=== PATIENT | male | born 1935 | race Hispanic/Latino ===

== ENCOUNTER 2017-12-11 20:00 | Inpatient (IN) | payer MEDICARE, BC ==
[~2017-12-11] VITALS: Ht 188 cm; Wt 87.1 kg
[2017-12-11] MEDS ORDERED: AMIODARONE HCL200 MG PO (20:19)
[2017-12-11] MEDS ORDERED: ASPIR 8181 MG (20:19)
[2017-12-11] MEDS ORDERED: SIMVASTATIN40 MG PO (20:20)
[2017-12-11] MEDS ORDERED: ARICEPT5 MG PO (20:20)
[2017-12-11] MEDS ORDERED: SODIUM CHLORIDE 0.9% 1000ML 1,000 ML IV STA (20:36)
[2017-12-11] MEDS ORDERED: ACETAMINOPHEN 1000 MG/100 ML IV STA (20:53)
[2017-12-11 20:59] LABS: BASOPHILS % 0.2 % (0.0-1.0); EOSINOPHILS % 0.2 % (0.0-6.0); HEMATOCRIT 37.9 % (38.2-49.6); HEMOGLOBIN 12.6 g/dL (14.0-18.0); LYMPHOCYTES # (AUTO) 0.5 (1.0-3.2); LYMPHOCYTES % 4.6 % (18.0-39.1); MEAN CORPUSCULAR HEMOGLOBIN 30.9 pg (28-32); MEAN CORPUSCULAR HGB CONC 33.2 g/dL (31-35); MEAN CORPUSCULAR VOLUME 92.9 fL (81-99); MONOCYTES # (AUTO) 0.6 (0.2-0.8); NEUTROPHILS # (AUTO) 10.1 (2.1-6.9); NEUTROPHILS % 89.3 % (38.7-80.0); PLATELET COUNT 178 x10e3/uL (140-360); RED BLOOD COUNT 4.08 x10e6/uL (4.3-5.7); RED CELL DISTRIBUTION WIDTH 13.6 % (11.7-14.4)
[2017-12-11] MEDS ORDERED: VANCOMYCIN 1GM/NS 250 ML 250 ML IV ONE (21:00)
[2017-12-11 21:07] LABS: INR 3.56
[2017-12-11 21:09] LABS: PARTIAL THROMBOPLASTIN TIME 68.8 seconds (23.8-35.5)
[2017-12-11 21:14] LABS: ALANINE AMINOTRANSFERASE 57 IU/L (0-55); ALBUMIN 3.9 g/dL (3.5-5.0); ALBUMIN/GLOBULIN RATIO 1.1 (0.8-2.0); ALKALINE PHOSPHATASE 113 IU/L (40-150); ANION GAP 17.9 mmol/L (8-16); BLOOD UREA NITROGEN 22 mg/dL (7-26); BUN/CREATININE RATIO 20 (6-25); CALCIUM 9.3 mg/dL (8.4-10.2); CARBON DIOXIDE 20 mmol/L (22-29); CHLORIDE 105 mmol/L (98-107); CREATINE KINASE 45 IU/L (30-200); EST GLOMERULAR FILTRATION RATE > 60 ML/MIN (60-); GLUCOSE 200 mg/dL (74-118); MAGNESIUM 1.6 MG/DL (1.3-2.1); POTASSIUM 3.9 mmol/L (3.5-5.1); SODIUM 139 mmol/L (136-145)
[2017-12-11] MEDS: CEFEPIME HCL 2 GM VIAL IV SCH (21:52)
[2017-12-11 22:21] LABS: BAND NEUTROPHILS % (MANUAL) 1 %; LYMPHOCYTES % (MANUAL) 2 % (19-48); MONOCYTES % (MANUAL) 1 % (3.4-9.0); NEUTROPHILS % (MANUAL) 96 % (40-74); PLATELET ESTIMATE ADEQUATE; PLATELET MORPHOLOGY COMMENT NORMAL; RBC MORPHOLOGY COMMENT NORMAL
[2017-12-11 22:32] LABS: CLARITY,URINE CLOUDY (CLEAR); COLOR,URINE YELLOW (YELLOW); LEUKOCYTE ESTERASE ,URINE 2+ (NEGATIVE); NITRITE,URINE POSITIVE (NEGATIVE); PROTEIN,URINE DIPSTICK TRACE (NEGATIVE)
[2017-12-11 22:33] LABS: BILIRUBIN,URINE NEGATIVE (NEGATIVE); KETONES,URINE 1+ (NEGATIVE); URINE UROBILINOGEN 0.2 mg/dL (0.2 - 1)
[2017-12-11] MEDS ORDERED: LEXAPRO10 MG PO (22:52)
[2017-12-11] MEDS ORDERED: WARFARIN SODIUM2 MG PO (22:52)
[2017-12-11] MEDS ORDERED: TRADJENTA5 MG (22:53)
[2017-12-11] MEDS ORDERED: PROPRANOLOL HCL80 MG PO (22:53)
[2017-12-11 22:56] LABS: BACTERIA,URINE MANY /HPF; EPITHELIAL CELLS,URINE FEW /LPF; RBC,URINE 0-5 /HPF (0-5); WBC,URINE (MAN) >50 /HPF (0-5)
[2017-12-11 23:20] LABS: STREPTOCOCCUS GRP A ANTIGEN NEGATIVE (NEGATIVE)
[2017-12-11 23:24] LABS: INFLUENZAE A&B ANTIGEN (RAPID) NEGATIVE (NEGATIVE)
[2017-12-12] VITALS (7 sets, daily range): BP systolic 121–178; BP diastolic 60–85
--- NOTE | 2017-12-12 00:22 | Diagnostic Imaging Report ---
EXAM: CHEST SINGLE (PORTABLE), AP 1 view INDICATION: Fever and weakness COMPARISON: None FINDINGS: LINES/TUBES: None LUNGS: Bilateral perihilar bronchial thickening. PLEURA: No effusions or pneumothorax. HEART AND MEDIASTINUM: Normal size and contour. Median sternotomy wires and valve replacement. BONES AND SOFT TISSUES: No acute findings. IMPRESSION: Bilateral perihilar bronchial thickening. This could be secondary to infection or edema. Signed by: Dr. Liudmila Corona M.D. on 12/12/2017 12:19 AM
--- NOTE | 2017-12-12 00:37 | Diagnostic Imaging Report ---
Exam: Head CT without contrast History: Altered mental status, on Coumadin, Comparison studies: None Technique: Axial images were obtained from the skull base to the vertex. Coronal and sagittal images reconstructed from the axial data. Dose modulation, iterative reconstruction, and/or weight based adjustment of the mA/kV was utilized to reduce the radiation dose to as low as reasonably achievable. Radiation dose: Total DLP: 921 mGy*cm. Estimated effective dose: DLP x 0.015 Intravenous contrast: None Findings: Scalp: No abnormalities. Bones: No fractures, or aggressive-appearing blastic or lytic lesions. There are a few scattered subtle lytic foci in the calvarium and nonaggressive-appearing 7 mm sclerotic lesion in the right parietal calvarium which are nonspecific. Brain sulci: Mildly prominent. Ventricles: Moderately dilated, slightly disproportionate to sulcal prominence. With slightly greater dilatation along the frontal horns of the lateral ventricles. Findings may be compensatory related to a degree of central greater than peripheral cortical volume loss. Consider NPH only in the appropriate clinical setting. No acute hydrocephalus. Incidental anatomical variant cavum septum pellucid and cavum and cavum vergae. Extra-axial spaces: No masses, no fluid collection. Parenchyma: No mass, acute hemorrhage or acute or chronic cortical vascular insults. Ill-defined confluent hypodensities in the supratentorial white matter are nonspecific most compatible chronic microvascular ischemic changes. Sellar/suprasellar region: No abnormalities. Craniocervical junction: Patent foramen magnum. No Chiari one malformation. Incidental findings: Atherosclerotic calcifications in the carotid siphons. Punctate vascular or dystrophic calcification in the left sylvian fissure. IMPRESSION: 1. No acute hemorrhage or other acute intracranial abnormalities. 2. Generalized volume loss. 3. Moderate chronic microvascular ischemic changes. 4. Nonspecific ventriculomegaly may be due to volume loss. Consider NPH only in the appropriate clinical setting. Signed by: Dr. Ray Vincent M.D. on 12/12/2017 12:34 AM
[2017-12-12] MEDS ORDERED: SODIUM CHLORIDE 0.9% 1000ML 1,000 ML IV ONE (00:45)
[2017-12-12] MEDS ORDERED: ACETAMINOPHEN 1000 MG/100 ML IV PRN (00:45)
[2017-12-12] MEDS ORDERED: ONDANSETRON HCL INJ 2 MG/ML VIAL IV PRN (00:45)
[2017-12-12 06:13] LABS: CREATINE KINASE MB 0.8 ng/mL (0-5.0)
[2017-12-12 07:09] LABS: BASOPHILS % 0.2 % (0.0-1.0); HEMATOCRIT 37.1 % (38.2-49.6); HEMOGLOBIN 12.2 g/dL (14.0-18.0); LYMPHOCYTES # (AUTO) 0.4 (1.0-3.2); LYMPHOCYTES % 3.3 % (18.0-39.1); MEAN CORPUSCULAR HEMOGLOBIN 30.7 pg (28-32); MEAN CORPUSCULAR HGB CONC 32.9 g/dL (31-35); MEAN CORPUSCULAR VOLUME 93.2 fL (81-99); MONOCYTES # (AUTO) 0.8 (0.2-0.8); MONOCYTES % 6.2 % (4.4-11.3); NEUTROPHILS # (AUTO) 10.9 (2.1-6.9); NEUTROPHILS % 89.5 % (38.7-80.0); PLATELET COUNT 169 x10e3/uL (140-360); RED BLOOD COUNT 3.98 x10e6/uL (4.3-5.7); RED CELL DISTRIBUTION WIDTH 13.6 % (11.7-14.4)
[2017-12-12 07:20] LABS: ALANINE AMINOTRANSFERASE 78 IU/L (0-55); ALBUMIN 3.5 g/dL (3.5-5.0); ALBUMIN/GLOBULIN RATIO 1.1 (0.8-2.0); ALKALINE PHOSPHATASE 124 IU/L (40-150); ANION GAP 16.4 mmol/L (8-16); BLOOD UREA NITROGEN 22 mg/dL (7-26); BUN/CREATININE RATIO 22 (6-25); CALCIUM 9.1 mg/dL (8.4-10.2); CARBON DIOXIDE 20 mmol/L (22-29); CHLORIDE 107 mmol/L (98-107); CREATININE, SERUM 1.01 mg/dL (0.72-1.25); EST GLOMERULAR FILTRATION RATE > 60 ML/MIN (60-); GLUCOSE 216 mg/dL (74-118); POTASSIUM 4.4 mmol/L (3.5-5.1); SODIUM 139 mmol/L (136-145)
[2017-12-12] MEDS ORDERED: IBUPROFEN 400 MG TAB PO PRN (07:45)
[2017-12-12] MEDS ORDERED: DEXTROSE 50% SYRINGE 50 ML IV PRN (07:45)
[2017-12-12] MEDS ORDERED: IBUPROFEN 200 MG TAB ONE (07:47)
[2017-12-12] MEDS ORDERED: INSULIN LISPRO 100 UNIT/1 ML 3ML VIAL SQ ONE (07:47)
[2017-12-12] MEDS: INSULIN LISPRO 100 UNIT/1 ML 3ML VIAL SQ SCH ×3 (07:52→21:00)
[2017-12-12] MEDS ORDERED: SODIUM CHLORIDE 0.45% 100 ML 100 ML IV ONE (09:07)
[2017-12-12] MEDS: AMIODARONE HCL 200 MG TAB PO SCH (09:13)
[2017-12-12] MEDS: CEFEPIME HCL 2 GM VIAL IV SCH (09:13)
[2017-12-12] MEDS: ESCITALOPRAM OXALATE 10 MG TAB PO SCH (09:13)
[2017-12-12] MEDS: ASPIRIN 81 MG CHEW TAB PO SCH (09:13)
[2017-12-12 09:31] LABS: BAND NEUTROPHILS % (MANUAL) 7 %; LYMPHOCYTES % (MANUAL) 5 % (19-48); MONOCYTES % (MANUAL) 8 % (3.4-9.0); NEUTROPHILS % (MANUAL) 80 % (40-74); PLATELET ESTIMATE ADEQUATE; PLATELET MORPHOLOGY COMMENT NORMAL; RBC MORPHOLOGY COMMENT NORMAL
[2017-12-12] MEDS: PROPRANOLOL HCL 80 MG CAPCR PO SCH (09:58)
[2017-12-12] MEDS ORDERED: CEFEPIME HCL 1 GM VIAL IV SCH (12:00)
[2017-12-12 13:57] LABS: CREATINE KINASE MB 0.6 ng/mL (0-5.0)
--- NOTE | 2017-12-12 16:01 | Diagnostic Imaging Report ---
ADDENDUM #1 Indication: Stone protocol. UTI. Prostate cancer. Signed by: Dr. Robert Santana MD on 12/20/2017 9:45 AM ORIGINAL REPORT EXAM: CT Abdomen and Pelvis WITHOUT contrast INDICATION: COMPARISON: None. TECHNIQUE: Abdomen and Pelvis was scanned utilizing a multidetector helical scanner without the use of IV contrast. Coronal and sagittal reformations were obtained. IV CONTRAST: None COMPLICATIONS: None RADIATION DOSE: Total DLP: 593 mGy*cm Estimated effective dose: (DLP x 0.015 x size factor) mSv CTDIvol has been reviewed. It is below the limits set by the Radiation Protocol Committee (RPC). Appropriate CT dose reduction techniques were utilized. FINDINGS: Abdomen: Lung Bases: Dense calcifications of the aortic valve versus postsurgical changes partially visualized. Atelectasis/scarring in the lung bases with minimal bronchiectasis. Solid Organs: Increased density of the liver noted. Hypodensities in the kidneys are incompletely evaluated. Calcifications are present in the left kidney, largest 25 x 8 mm. Gas is present within the left renal collecting system. Adrenal glands, spleen, and pancreas grossly unremarkable nonenhanced exam. Upper GI Tract: Decompressed stomach limits evaluation. Questionable stranding about the duodenal C-loop region. Vascularity: Moderate aortic vascular calcifications. Lymph Nodes: No suspicious adenopathy by size criteria. Scattered small mesenteric and aortocaval lymph nodes noted. Other: None. Pelvis: Bladder: Decompressed by Merchant catheter. Gas present. Other: Small amount of fluid present in the pelvis, unusual male patient. Colon: No acute colonic findings. Appendix not inflamed. Bones: Advanced degenerative changes lumbar spine. IMPRESSION: 1. Large calcifications superior left kidney with gas in the left renal collecting system. While gas could be secondary to urinary bladder instrumentation, infectious process of the kidney should be considered. Clinical and laboratory correlation recommended. 2. Bilateral renal cysts, incompletely evaluated without IV contrast. There is a cyst on the right with probable thin partially calcified septation. 3. Increased density of the liver can be seen in the setting of amiodarone usage or other chronic liver processes. 4. Questionable stranding about the duodenal C-loop. Findings can be seen in the setting of pancreatitis, duodenitis, or cholecystitis. Clinical and laboratory correlation recommended. Ultrasound could be obtained for further evaluation. Signed by: Dr. Robert Santana MD on 12/12/2017 3:57 PM
[2017-12-12] MEDS ORDERED: WARFARIN SOD 2 MG TAB PO SCH (17:00)
--- NOTE | 2017-12-12 19:06 | Consultation ---
DATE OF CONSULTATION: December 12, 2017 UROLOGY CONSULTATION REASON FOR CONSULTATION: Complicated urinary tract infection. HISTORY OF PRESENT ILLNESS: Nicolas Arndt is an 82-year-old man with diagnosis of prostate cancer. He is status post radiotherapy. This was done at [facility]. He does not recall the name of his urologist. The patient is currently being admitted for fevers and urinary tract infection and urological consultation was sought. A Merchant catheter was placed as well. The patient denies any hematuria. Denies any nausea and vomiting. PAST MEDICAL AND SURGICAL HISTORY 1. 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 Corwin Galan in 2005 at [facility]. 2. Status post inguinal hernia. 3. Diabetes mellitus. 4. Hypertension. 5. Hypercholesterolemia. ALLERGIES: NONE KNOWN. SOCIAL HISTORY: The patient denies smoking, ethenol, or drug use. 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 He has supportive at the bedside. FAMILY HISTORY: Noncontributory to the active urological problems. REVIEW OF SYSTEMS: Consistent with above history of present illness and past medical history. Otherwise, negative for all other systems. CURRENT MEDICATIONS: Please refer to the MAR. PHYSICAL EXAMINATION GENERAL: A very pleasant elderly man, lying in bed, in no apparent distress. VITAL SIGNS: He is currently afebrile. Vital signs are currently stable. ABDOMEN: Soft, nondistended, nontender without costovertebral angle tenderness. Kidneys are not palpable. No hepatosplenomegaly. No obvious evidence of hernia. GENITOURINARY: Testes are descended bilaterally. Testes and epididymis are bilaterally nontender. The patient has a normal male phallus with a Merchant catheter in place draining yellow urine out. For the remainder of physical examination systems, please refer to the admission history and physical on the chart as well as the ERT sheet. LABORATORY STUDIES: White blood cell count is 12,120, hemoglobin 12.2, platelets are 169,000. Patient's creatinine is normal at 1.01. His glucose is elevated. Patient's urinalysis is significant for 2+ blood with nitrite positive urine, greater than 50 wbc's, 0-5 rbc's, and many bacteria. Urine and blood cultures are pending. ASSESSMENT 1. Prostate cancer, status post radiotherapy. 2. Urinary tract infection. 3. Leukocytosis. 4. Anemia. 5. Microhematuria. PLAN 1. I agree with the current choice of antibiotics for the present time. 2. I will order imaging of the urinary tract. 3. We will follow up on patient's culture and sensitivity and adjust antibiotics accordingly. 4. The patient and his would like to discontinue their commute to the [facility] to see physician and would like to relocate their urological care to the local community here. I will be happy to be the patient's ongoing urologist. Thank you very much for involving us in the care of your patient. We will be happy to follow him along with you as well as an patient. Job#: [id number] VAS cc:DR ANABEL CALDERÓN
[2017-12-12] MEDS: SIMVASTATIN 40 MG TAB PO SCH (20:30)
[2017-12-12] MEDS: CEFEPIME HCL 1 GM VIAL IV SCH (20:30)
[2017-12-12] MEDS: DONEPEZIL HCL 5 MG TAB PO SCH (20:30)
[2017-12-12] MEDS ORDERED: SODIUM CHLORIDE 0.9% 250ML 250 ML ONE (20:31)
--- NOTE | 2017-12-12 22:24 | History and Physical ---
HISTORY: Unfortunate 82-year-old gentleman admitted with shaking chills at home, too weak to move, incontinent of urine, experienced some nausea. History of coronary artery disease with bypass surgery, diabetes, aortic valve replacement, CA of the prostate treated with external beam radiation all in 2005. SOCIAL HISTORY: No alcohol. Nonsmoker. ALLERGIES: NO KNOWN ALLERGIES. MEDICATIONS: Include Tradjenta, warfarin, Zocor, Lexapro, aspirin, amiodarone, Aricept, and Inderal. PAST MEDICAL HISTORY: He has a history of dementia, history of heart failure with valve replacement, nausea, peripheral neuropathy, diabetes. He has a history of carcinoma of the prostate, treated in 2005. PHYSICAL EXAMINATION: GENERAL: This is a well-developed white male, somewhat confused. VITAL SIGNS: T-max 102.9, blood pressure 122/88, respirations 18. HEAD: Normocephalic, atraumatic. EYES: Extraocular movements intact. LUNGS: Bilateral rales. HEART: Irregular rhythm murmur and click. ABDOMEN: Nontender. EXTREMITIES: Nonedematous. IMPRESSION: 1. Heart failure. 2. Hypercoagulable state. 3. Urinary sepsis. Cultures are pending. Patient received vancomycin. Will continue cefepime. Check ultrasound of kidneys and gallbladder. History largely obtained from family. Thank you. Job#: [id number]
[2017-12-13] VITALS (8 sets, daily range): BP systolic 126–166; BP diastolic 62–94
[2017-12-13 05:12] LABS: BASOPHILS % 0.3 % (0.0-1.0); EOSINOPHILS % 0.2 % (0.0-6.0); HEMOGLOBIN 11.7 g/dL (14.0-18.0); LYMPHOCYTES # (AUTO) 0.9 (1.0-3.2); LYMPHOCYTES % 8.6 % (18.0-39.1); MEAN CORPUSCULAR HEMOGLOBIN 30.6 pg (28-32); MEAN CORPUSCULAR HGB CONC 32.5 g/dL (31-35); MEAN CORPUSCULAR VOLUME 94.2 fL (81-99); MONOCYTES # (AUTO) 0.9 (0.2-0.8); MONOCYTES % 9.3 % (4.4-11.3); PLATELET COUNT 123 x10e3/uL (140-360); RED BLOOD COUNT 3.82 x10e6/uL (4.3-5.7); RED CELL DISTRIBUTION WIDTH 13.6 % (11.7-14.4)
[2017-12-13 05:55] LABS: ALANINE AMINOTRANSFERASE 91 IU/L (0-55); ALBUMIN 3.4 g/dL (3.5-5.0); ALBUMIN/GLOBULIN RATIO 1.2 (0.8-2.0); ALKALINE PHOSPHATASE 109 IU/L (40-150); BLOOD UREA NITROGEN 21 mg/dL (7-26); BUN/CREATININE RATIO 22 (6-25); CALCIUM 8.9 mg/dL (8.4-10.2); CARBON DIOXIDE 21 mmol/L (22-29); CHLORIDE 104 mmol/L (98-107); CREATININE, SERUM 0.97 mg/dL (0.72-1.25); EST GLOMERULAR FILTRATION RATE > 60 ML/MIN (60-); GLUCOSE 149 mg/dL (74-118); SODIUM 138 mmol/L (136-145)
--- NOTE | 2017-12-13 06:48 | Diagnostic Imaging Report ---
EXAM: CHEST 2 VIEWS, PA and lateral INDICATION: Shortness of breath COMPARISON: AP view of the chest December 12, 2017 FINDINGS: LINES/TUBES: None LUNGS: Stable bilateral peribronchial thickening and scattered atelectatic changes. PLEURA: Trace bilateral pleural effusions. HEART AND MEDIASTINUM: Stable appearance BONES AND SOFT TISSUES: No acute findings. IMPRESSION: No interval change. Signed by: Dr. Liudmila Corona M.D. on 12/13/2017 6:45 AM
[2017-12-13] MEDS: INSULIN LISPRO 100 UNIT/1 ML 3ML VIAL SQ SCH ×4 (07:30→21:55)
[2017-12-13] MEDS: ASPIRIN 81 MG CHEW TAB PO SCH (09:00)
[2017-12-13] MEDS: AMIODARONE HCL 200 MG TAB PO SCH (09:00)
[2017-12-13] MEDS: ESCITALOPRAM OXALATE 10 MG TAB PO SCH (09:00)
[2017-12-13] MEDS: CEFEPIME HCL 1 GM VIAL IV SCH (09:00)
[2017-12-13] MEDS: PROPRANOLOL HCL 80 MG CAPCR PO SCH (09:00)
[2017-12-13] MEDS ORDERED: VANCOMYCIN 1GM/NS 250 ML 250 ML IV ONE (10:30)
--- NOTE | 2017-12-13 12:43 | Diagnostic Imaging Report ---
EXAM: US ABDOMEN COMPLETE DATE: 12/13/2017 12:00 AM Time stamp on exam: 12:00 INDICATION: UTI COMPARISON: CT abdomen and pelvis 12/12/2017 TECHNIQUE: Transverse and longitudinal thompson scale and color doppler sonographic images of the upper abdomen were obtained. FINDINGS: LIVER 15 cm in the right midclavicular line. Increased parenchymal echogenicity, normal contour, no masses. SPLEEN 12.4 cm in maximum diameter. Normal echogenicity, no masses. GALLBLADDER Wall is at the upper limits of normal in thickness likely due to contracted status. Mild internal echogenic sludge. No pericholecystic fluid. Negative sonographic Eduardo's sign. BILE DUCTS No intra nor extra-hepatic biliary dilation. Common bile duct measures 0.3 cm PANCREAS: Visualized portions are normal. RIGHT KIDNEY: 12.7 cm Echogenicity: Normal Collecting System: No hydronephrosis Stones: None Cyst/Mass: Mid pole cyst measures 2.7 x 2.6 x 2.6 cm and contains a single thin internal septation. Upper pole cyst measures 1.9 x 1.8 x 2 cm. LEFT KIDNEY: 11.2 cm Echogenicity: Normal Collecting System: No hydronephrosis Stones: None Cyst/Mass: Simple cyst projects laterally from the interpolar region and measures 1.8 x 2.3 x 1.5 cm. Upper pole parenchymal cyst measures 4.4 x 3.2 x 3.5 cm and is somewhat lobulated in contour. Calcifications described on the comparison CT are poorly visualized by sonography. VESSELS: Aorta: Nonaneurysmal Inferior Vena Cava: Visualized portions are normal Main Portal Vein: 0.9 cm, normal size with hepatopetal flow. FREE FLUID: None IMPRESSION: Bilateral renal cysts. The largest right renal cyst is minimally complex. Gallbladder sludge with wall thickness at upper limits of normal, likely related to contracted state in the setting of a negative sonographic Eduardo sign. Left renal calculi seen on the comparison CT examination are poorly visualized by sonography. Increased hepatic parenchymal echogenicity. Refer to CT report for further details. Signed by: Dr. Ray Alberto M.D. on 12/13/2017 12:40 PM
[2017-12-13 13:03] LABS: LYMPHOCYTES % (MANUAL) 5 % (19-48); MONOCYTES % (MANUAL) 9 % (3.4-9.0); NEUTROPHILS % (MANUAL) 86 % (40-74)
[2017-12-13 13:04] LABS: PLATELET ESTIMATE ADEQUATE; PLATELET MORPHOLOGY COMMENT NORMAL; RBC MORPHOLOGY COMMENT NORMAL
--- NOTE | 2017-12-13 13:48 | Consultation ---
DATE OF CONSULTATION: December 12, 2017 REASON FOR CONSULTATION: Aortic valve replacement. CONSULTING PHYSICIAN: Dr. Ray Angel. HPI: This is an 82-year-old male that presented with generalized weakness. According to family, he was having fever, chills, shaking, and bladder incontinence, then he was brought to the emergency room for evaluation. He has a history of dementia and not able to follow any command. He has a history of AFib and aortic valve replacement and has been on Coumadin. His INR was 3.56. His EKG was showing normal sinus rhythm with first-degree AV block and some right bundle branch block. Troponin was negative. Chest x-ray showed trace bilateral pleural effusion. PAST MEDICAL HISTORY: CAD, aortic stenosis, AFib, diabetes, hypertension, hyperlipidemia, anemia, UTI, dementia, and RI. PAST SURGICAL HISTORY: Multiple cardiac ablation and cardioversion, aortic valve replacement with St. Augusto device, and CABG. FAMILY HISTORY: Positive for CAD. SOCIAL HISTORY: No smoking. Lives with family. MEDICATIONS: See med list. ALLERGIES: SHE IS NOT ALLERGIC TO ANY MEDICATION. REVIEW OF SYSTEMS: Unable to obtain due to dementia. PHYSICAL EXAMINATION VITAL SIGNS: Temperature 99, heart rate 58, blood pressure 152/74, respirations 18, and oxygen saturation 94% on 2 liters of nasal cannula. GENERAL: He is awake, alert, and oriented x1. HEENT: Mucous membranes moist. NECK: Supple. LUNGS: Bilateral with decreased breath sounds. CARDIOVASCULAR: Irregular. ABDOMEN: Soft. NEUROLOGICAL: He is not able to follow any command. EXTREMITIES: With no edema. LABORATORY DATA: Sodium 138, potassium 4.0, chloride 104, CO2 of 21, BUN 21, creatinine 0.97, and glucose 149. White blood cells 9.83, hemoglobin 11.7, hematocrit 36.0, and platelets 123. PT 10.0, PTT 68.8, and INR 3.56. IMPRESSION 1. Sepsis. 2. Atrial fibrillation. 3. Dementia. 4. Urinary tract infection. 5. Hypertension. 6. Coronary artery disease with aortic valve replacement. 7. Diabetes. 8. Elevated INR. ASSESSMENT AND PLAN: We will go ahead and get an EKG and echocardiogram. Heart rate is controlled. Will continue his home medication. He has [employer] Augusto mechanical valve. Will go ahead and keep his INR between 2.5 to 3. INR was 3.56. We will go ahead and hold Coumadin for today. Further cardiac workup pending clinical course. Thank you for this consultation. Dictated by: Andrea Pham NP Job#: [id number] NAZ
[2017-12-13 15:33] LABS: AMYLASE 40 U/L (25-125); LIPASE 21 U/L (8-78)
--- NOTE | 2017-12-13 16:04 | Consultation ---
DATE OF CONSULTATION: December 13, 2017 INFECTIOUS DISEASE CONSULTATION I would like to thank Dr. Alanis for this interesting consult. HISTORY OF PRESENT ILLNESS: This is an 82-year-old very pleasant male with a past medical history of coronary artery disease, aortic stenosis, atrial fibrillation, diabetes mellitus, hypertension, hyperlipidemia, prostate cancer, status post chemotherapy and radiation therapy in 2005, aortic valve replacement with mechanical aortic valve. He has been on Coumadin. The patient was having fever, chills and confusion, and bladder incontinence at home for a span of 2-3 days. is at the bedside and providing the history. According to her, the patient was not feeling well. He was confused. With these complaints, she brought him to the hospital. He was found to have urinary tract infection secondary to E. coli and bacteremia due to gram-negative rods. He has been started on IV cefepime 1 g q.12 h. and IV vancomycin 1 g has been given. Our service has been asked to evaluate and give recommendations regarding antibiotics and further management. PAST MEDICAL HISTORY: Coronary artery disease, aortic stenosis, atrial fibrillation, diabetes mellitus, hypertension, anemia, prostate cancer, status post chemotherapy and radiation therapy, urinary tract infection, dementia. PAST SURGICAL HISTORY: Multiple cardiac ablations, cardioversion, aortic valve replacement with St. Augusto's device, and CABG. FAMILY HISTORY: Positive for coronary artery disease. SOCIAL HISTORY: The patient lives at home with family. No history of smoking or alcohol intake. MEDICATIONS: Reviewed. ALLERGIES: NO KNOWN DRUG ALLERGIES. REVIEW OF SYSTEMS CONSTITUTIONAL: Complains of fever and fatigue. HEENT: No difficulty in vision. No difficulty in hearing. CHEST: No chest pain or palpitations. RESPIRATORY: No cough or difficulty breathing. GI: No nausea, vomiting or diarrhea. : Complains of burning on urination. EXTREMITIES: No edema. NEUROLOGIC: No focal weakness. PHYSICAL EXAMINATION VITALS: Temperature is 98.6, respiratory rate 18, heart rate 58, blood pressure is 152/74. CHEST: Clear to auscultation bilaterally. HEART: S1 and S2 is normal. ABDOMEN: Soft and nontender. EXTREMITIES: No edema. NEUROLOGIC: Awake and oriented times 2. LABS: Reviewed. ASSESSMENT AND PLAN: This is a patient with extensive past medical history of hypertension, coronary artery disease, diabetes mellitus, aortic valve replacement with St. Augusto's device, atrial fibrillation, aortic stenosis, prostate cancer, status post radiation therapy and chemotherapy in 2005, presents with sepsis. Urinary tract infection secondary to Escherichia coli. Gram-negative bacteremia. Complex renal cysts and concern for abscess. The patient has bacteremia most likely due to urinary tract infection. The patient has elevated LFTs. CT of the abdomen is concerning for pancreatitis. I am going to check an amylase and lipase. Discontinue cefepime and start Zosyn 3.375 q.8 h. Will repeat the blood cultures in the morning. Will request 2-D echocardiogram. Further recommendations to follow. Thank you for letting me participate in the care of your patient. Job#: [id number] TIFFANY
[2017-12-13] MEDS ORDERED: ACETAMINOPHEN 325 MG TAB PO PRN (16:45)
[2017-12-13] MEDS ORDERED: SODIUM CHLORIDE 0.9% 250ML 250 ML ONE (21:45)
[2017-12-13] MEDS: DONEPEZIL HCL 5 MG TAB PO SCH (21:48)
[2017-12-13] MEDS: PIPER-TAZ 3.375 GM 50 ML IV SCH (21:48)
[2017-12-13] MEDS: SIMVASTATIN 40 MG TAB PO SCH (21:48)
--- NOTE | 2017-12-13 22:26 | Consultation ---
DATE OF CONSULTATION: December 13, 2017 GI CONSULTATION ADMIT PHYSICIAN: Dr. Alanis REASON FOR CONSULT: Abnormal CT. HPI: Patient is 82-year-old male with past medical history of AFib, diabetes, hypertension, CAD, hyperlipidemia, prostate cancer status post chemo, aortic valve replacement with mechanical test engineer aortic valve, who presented to the emergency room with reports of fever, confusion, chills as well as bladder incontinence. History provided by the at bedside. Today, the patient's is not present and he states that he was not really sure why he was brought to the hospital. Patient was found to have UTI secondary to E. coli and currently has been given vancomycin, IV cefepime. GI has been consulted for abnormal CT. CT shows questionable stranding about the duodenal C-loop, findings can be seen in setting of pancreatitis, duodenitis, or cholecystitis, clinical and laboratory correlation recommended, as well as increased density of the liver that is seen. Abdominal ultrasound showed gallbladder sludge with wall thickness, likely related to contracted state and negative sonographic Eduardo sign and increased hepatic parenchymal echogenicity. Patient denies any abdominal pain, nausea, vomiting, diarrhea, or constipation. He states he has had a colonoscopy in the past many, many years ago, but he does not recall what was found on the report. Denies any overt signs of bleeding. PAST MEDICAL HISTORY: Prostate cancer status post chemotherapy, UTI, dementia, CAD, aortic stenosis, AFib, diabetes mellitus. PAST SURGICAL HISTORY: CABG, aortic valve replacement with St. Augusto's device, multiple cardiac ablations. FAMILY HISTORY: Hypertension. SOCIAL HISTORY: Denies any smoking or alcohol intake or any recreational drugs. MEDICATIONS: Reviewed as per EMR. ALLERGIES: NO KNOWN DRUG ALLERGIES. REVIEW OF SYSTEMS: CONSTITUTIONAL: No fever. No fatigue. HEENT: No difficulty hearing. No vision problems. NECK: No pain. CARDIAC: No chest pain. No palpitations. PULMONARY: No difficulty breathing. No shortness of breath. No cough. GI: No nausea, vomiting, diarrhea. No melena. No hematochezia. No hematemesis. : Denies hematuria. Complains of burning with urination. EXTREMITIES: Denies any edema. NEURO: Denies any focal weakness. States of having some confusion. PHYSICAL EXAMINATION: VITAL SIGNS: Temp 98, heart rate 58, blood pressure 152/74, respirations 18, O2 sat is 94%, currently on 2 liters of nasal cannula oxygen. GENERAL: Alert, awake, oriented x2. HEENT: Mucous membranes moist. NECK: Supple, nontender. LUNGS: Decreased breath sounds bilaterally. CARDIOVASCULAR: Irregularly irregular heart sounds. No murmur. ABDOMEN: Soft, nontender. Slightly distended. NEUROLOGICAL: Slightly confused, alert. EXTREMITIES: 1+ edema. No cyanosis, no clubbing. LABS: INR is 3.56, PT 38.0. White count 11.32, hemoglobin 12.6, MCV 92.9, platelet count 178,000. Albumin 3.4. AST 64, ALT 91, T bili 1.6, glucose 149. UA abnormal. ASSESSMENT: 1. Abnormal computerized tomography without any abnormal gastrointestinal symptoms. 2. Elevated liver function tests. 3. Leukocytosis with urinary tract infection with bacteremia. 4. Supratherapeutic INR. 5. Atrial fibrillation. PLAN: 1. EGD Wednesday, diagnostic on anticoagulation. 2. Liver workup, ordered hepatitis panel. Trend LFTs. 3. Continue supportive care Thank you for the consult. We will follow. Dictated By: Annika Nails PA-C Job#: [id number] DR MATA
[2017-12-14] VITALS: BP 163/61
[2017-12-14 04:00] VITALS: BP 148/67
[2017-12-14 05:29] LABS: BASOPHILS % 0.2 % (0.0-1.0); EOSINOPHILS % 0.2 % (0.0-6.0); HEMATOCRIT 33.6 % (38.2-49.6); HEMOGLOBIN 11.1 g/dL (14.0-18.0); LYMPHOCYTES # (AUTO) 0.7 (1.0-3.2); LYMPHOCYTES % 8.2 % (18.0-39.1); MEAN CORPUSCULAR HEMOGLOBIN 30.6 pg (28-32); MEAN CORPUSCULAR VOLUME 92.6 fL (81-99); MONOCYTES # (AUTO) 0.9 (0.2-0.8); MONOCYTES % 10.2 % (4.4-11.3); NEUTROPHILS % 80.4 % (38.7-80.0); PLATELET COUNT 127 x10e3/uL (140-360); RED BLOOD COUNT 3.63 x10e6/uL (4.3-5.7); RED CELL DISTRIBUTION WIDTH 13.4 % (11.7-14.4)
[2017-12-14 05:50] LABS: INR 1.42; PROTHROMBIN TIME 18.5 seconds (11.9-14.5)
[2017-12-14 06:10] LABS: ALANINE AMINOTRANSFERASE 87 IU/L (0-55); ALBUMIN 3.1 g/dL (3.5-5.0); ALBUMIN/GLOBULIN RATIO 0.9 (0.8-2.0); ALKALINE PHOSPHATASE 100 IU/L (40-150); ANION GAP 15.8 mmol/L (8-16); BLOOD UREA NITROGEN 18 mg/dL (7-26); BUN/CREATININE RATIO 19 (6-25); CALCIUM 9.3 mg/dL (8.4-10.2); CARBON DIOXIDE 24 mmol/L (22-29); CHLORIDE 102 mmol/L (98-107); CREATININE, SERUM 0.97 mg/dL (0.72-1.25); EST GLOMERULAR FILTRATION RATE > 60 ML/MIN (60-); GLUCOSE 183 mg/dL (74-118); POTASSIUM 3.8 mmol/L (3.5-5.1); SODIUM 138 mmol/L (136-145)
[2017-12-14] MEDS: PIPER-TAZ 3.375 GM 50 ML IV SCH ×3 (06:27→21:43)
[2017-12-14] MEDS: INSULIN LISPRO 100 UNIT/1 ML 3ML VIAL SQ SCH ×4 (07:30→21:38)
[2017-12-14 08:00] VITALS: BP 165/74
[2017-12-14] MEDS: PROPRANOLOL HCL 80 MG CAPCR PO SCH (09:00)
[2017-12-14] MEDS: AMIODARONE HCL 200 MG TAB PO SCH (09:00)
[2017-12-14] MEDS: ESCITALOPRAM OXALATE 10 MG TAB PO SCH (09:00)
[2017-12-14] MEDS: ASPIRIN 81 MG CHEW TAB PO SCH (09:00)
[2017-12-14 12:00] VITALS: BP 152/72
--- OUTSIDE RECORDS SUMMARY | 2017-12-14 13:47 | XMS REPORT | Clinical Summary ---
Author Author [facility] Address Unknown Phone Unavailable Care Team Providers Care Supervisor Irrigation Name Role Phone Asked, No Pcp PCP Unavailable Allergies No Known Allergies Current Medications Prescription Sig. Disp. Refills Start End Date Status Date amIODarone (PACERONE) 200 Take 200 mg by mouth 2 Active MG tablet (two) times a day. aspirin (ECOTRIN) 81 MG Take 81 mg by mouth Active enteric coated tablet daily. warfarin (COUMADIN) 1 MG Take 5 mg by mouth daily. Active tablet enalapril (VASOTEC) 2.5 Take 2.5 mg by mouth Active MG tablet daily. metoprolol tartrate Take 50 mg by mouth 2 Active (LOPRESSOR) 50 mg tablet (two) times a day. nitroglycerin (NITRODUR) Place 1 patch on the skin Active 0.2 mg/hr every morning. nitroglycerin (NITROSTAT) Place 0.4 mg under the Active 0.4 MG SL tablet tongue every 5 (five) minutes as needed for chest pain. simvastatin (ZOCOR) 40 MG Take 40 mg by mouth Active tablet nightly. warfarin (COUMADIN) 1 MG Take 1 mg by mouth daily. 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 03/21/2017 angina pectoris (HCC) Abnormal electrocardiogram 03/21/2017 Bifascicular block 03/21/2017 History of coronary artery bypass surgery 03/21/2017 Encounters Date Type Specialty Care Team Description 03/22/2017 Hospital Procedural Cardiology Chris Garcia MD Atrial fibrillation, Encounter persistent 03/22/2017 Anesthesia Procedural Cardiology Jimena Ackerman, Event NURSE AIDE EVALUATOR 03/22/2017 Procedure Pass Procedural Cardiology 03/22/2017 Surgery Procedural Cardiology Chris Garcia MD Ep cardioversion [52077 (CPT)] after 12/10/2016 Social History Tobacco Use Types Packs/Day Years Used Date Former Smoker Smokeless Tobacco: Former User Alcohol Use Drinks/Week oz/Week Comments No Sex Assigned at Date Recorded Not on file Last Filed Vital Signs Vital Sign Reading Time Taken Blood Pressure 114/65 03/22/2017 8:20 AM [facility] [facility] Pulse 59 03/22/2017 8:20 AM [employer] Temperature 37.1 C (98.7 F) 03/22/2017 7:53 AM [employer] Respiratory Rate 16 03/22/2017 8:20 AM [employer] [employer] Oxygen Saturation 97% 03/22/2017 8:20 AM [employer] Inhaled Oxygen - - Concentration Weight 86.2 kg (190 lb 2 oz) 03/22/2017 6:29 AM [employer] Height 188 cm (6' 2") 03/22/2017 6:29 AM [employer] Body Mass Index 24.41 03/22/2017 6:29 AM [employer] Plan of Treatment Not on file Procedures Procedure Name Priority Date/Time Associated Diagnosis Comments EP CARDIOVERSION Routine 03/22/2017 Atrial fibrillation, Results for this 7:50 AM [employer] persistent procedure are in the results section. ECG 12-LEAD STAT 03/22/2017 Results for this 7:47 AM [employer] procedure are in the results section. ZZESTIMATED GFR STAT 03/22/2017 Results for this 6:14 AM [employer] procedure are in the results section. PROTHROMBIN TIME WITH INR STAT 03/22/2017 Results for this 6:14 AM [employer] procedure are in the results section. BASIC METABOLIC PANEL STAT 03/22/2017 Results for this 6:14 AM [employer] procedure are in the results section. HC COMPLETE BLD COUNT STAT 03/22/2017 Results for this W/AUTO DIFF 6:14 AM [employer] procedure are in the results section. ECG 12-LEAD STAT 03/22/2017 Results for this 6:12 AM [employer] procedure are in the results section. after 12/10/2016 Results * Cv electrophysiology procedure (03/22/2017 7:50 AM) Narrative Performed At [facility] After IV sedation, synchronized cardioversion was performed delivering 200 Joules of energy via AP Zoll pads with rhythm converted to sinus rhythm. Performing Organization Address City/State/Zipcode Phone Number [facility] [address] [place] [address] * ECG 12 lead (03/22/2017 7:47 AM) Only the most recent of 2 results within the time period is included. Ventricular rate 56 [facility] Atrial rate 56 [facility] NH interval 214 [facility] QRSD interval 154 [facility] QT interval 510 [facility] QTC interval 492 [facility] MUSE P axis 1 62 [facility] QRS axis 1 -71 [facility] MUSE T wave axis 24 [facility] MUSE EKG impression Sinus bradycardia with 1st [facility] MUSE degree AV block with premature atrial complexes-Right bundle branch block-Left anterior fascicular block-^^^ Bifascicular block ^^^-Abnormal ECG-In automated comparison with ECG of 22-MAR-2017 06:12,-Sinus rhythm has replaced Atrial fibrillation- Performing Organization Address City/[facility]/Zipcode Phone Number [facility] [address] [place] [address] * Estimated GFR (03/22/2017 6:14 AM) GFR Non Af Amer 72 mL/min/1.73 m2 [facility] DEPARTMENT OF PATHOLOGY AND GENOMIC MEDICINE GFR Af Amer 87 mL/min/1.73 m2 [facility] DEPARTMENT OF Comment: PATHOLOGY AND Chronic kidney disease: <60 GENOMIC MEDICINE mL/min/1.73m2 Kidney failure: <15 mL/min/1.73m2 The estimated GFR is calculated from the IDMS-traceable Modification of Diet in Renal Disease Equation. The accuracy of the calculation is poor when the creatinine is normal. Calculated values >90 mL/min/1.73m2 are not reported. This equation has not been validated in children (<18 years), women, the elderly (>70 years), or ethnic groups other than Caucasians and Americans. Specimen Plasma specimen Performing Organization Address City/[facility]/Zipcode Phone Number [facility] DEPARTMENT OF [address] [place] [address] PATHOLOGY AND GENOMIC MEDICINE * Prothrombin time with INR (03/22/2017 6:14 AM) Prothrombin time 29.7 (H) 12.0 - 15.0 sec [facility] DEPARTMENT OF PATHOLOGY AND GENOMIC MEDICINE INR 2.8 [facility] DEPARTMENT OF Comment: PATHOLOGY AND The International Normalized GENOMIC MEDICINE Ratio (INR) is a therapeutic monitoring tool for patients who are stable on oral anticoagulant therapy. An INR of 2.0-3.0 is suggested for deep vein thrombosis/pulmonary embolism. Specimen Blood Performing Organization Address City/[facility]/Zipcode Phone Number [address] [address] PATHOLOGY AND GENOMIC MEDICINE * CBC with platelet and differential (03/22/2017 6:14 AM) WBC 6.45 4.50 - 11.00 k/uL [facility] DEPARTMENT OF PATHOLOGY AND GENOMIC MEDICINE RBC 3.84 (L) 4.40 - 6.00 m/uL [facility] DEPARTMENT OF PATHOLOGY AND GENOMIC MEDICINE HGB 11.9 (L) 14.0 - 18.0 g/dL [facility] DEPARTMENT OF PATHOLOGY AND GENOMIC MEDICINE HCT 34.9 (L) 41.0 - 51.0 % [facility] DEPARTMENT OF PATHOLOGY AND GENOMIC MEDICINE MCV 90.9 82.0 - 100.0 fL [facility] DEPARTMENT OF PATHOLOGY AND GENOMIC MEDICINE MCH 31.0 27.0 - 34.0 pg [facility] DEPARTMENT OF PATHOLOGY AND GENOMIC MEDICINE MCHC 34.1 31.0 - 37.0 g/dL [facility] DEPARTMENT OF PATHOLOGY AND GENOMIC MEDICINE RDW - SD 40.8 37.0 - 55.0 fL [facility] DEPARTMENT OF PATHOLOGY AND GENOMIC MEDICINE MPV 10.7 8.8 - 13.2 fL [facility] DEPARTMENT OF PATHOLOGY AND GENOMIC MEDICINE Platelet count 182 150 - 400 k/uL [facility] DEPARTMENT OF PATHOLOGY AND GENOMIC MEDICINE Nucleated RBC 0.00 /100 WBC [facility] DEPARTMENT OF PATHOLOGY AND GENOMIC MEDICINE Neutrophils 61.7 39.0 - 69.0 % [facility] DEPARTMENT OF PATHOLOGY AND GENOMIC MEDICINE Lymphocytes 28.7 25.0 - 45.0 % [facility] DEPARTMENT OF PATHOLOGY AND GENOMIC MEDICINE Monocytes 7.6 0.0 - 10.0 % [facility] DEPARTMENT OF PATHOLOGY AND GENOMIC MEDICINE Eosinophils 0.9 0.0 - 5.0 % [facility] DEPARTMENT OF PATHOLOGY AND GENOMIC MEDICINE Basophils 0.3 0.0 - 1.0 % [facility] DEPARTMENT OF PATHOLOGY AND GENOMIC MEDICINE Immature granulocytes 0.8Comment: "Immature 0.0 - 1.0 % [facility] DEPARTMENT OF granulocytes" (promyelocytes, PATHOLOGY AND myelocytes, metamyelocytes) GENOMIC MEDICINE Specimen Blood Performing Organization Address City/[facility]/Zipcode Phone Number [place] [phone] [place] [address] PATHOLOGY AND GENOMIC MEDICINE * Basic metabolic panel (03/22/2017 6:14 AM) Sodium 138 135 - 148 mEq/L [facility] DEPARTMENT OF PATHOLOGY AND GENOMIC MEDICINE Potassium 3.9 3.5 - 5.0 mEq/L [facility] DEPARTMENT OF PATHOLOGY AND GENOMIC MEDICINE Chloride 99 98 - 112 mEq/L [facility] DEPARTMENT OF PATHOLOGY AND GENOMIC MEDICINE CO2 22 (L) 24 - 31 mEq/L [facility] DEPARTMENT OF PATHOLOGY AND GENOMIC MEDICINE Anion gap 17 (H) 7 - 15 mEq/L [facility] DEPARTMENT OF Comment: PATHOLOGY AND Starting from May GENOMIC MEDICINE , anion gap calculation no longer incorporates potassium. Please note the change. BUN 20 8 - 23 mg/dL [facility] DEPARTMENT OF PATHOLOGY AND GENOMIC MEDICINE Creatinine 1.0 0.7 - 1.2 mg/dL [facility] DEPARTMENT OF PATHOLOGY AND GENOMIC MEDICINE Glucose 201 (H) 65 - 99 mg/dL [facility] DEPARTMENT OF PATHOLOGY AND GENOMIC MEDICINE Calcium 9.2 8.8 - 10.2 mg/dL [facility] DEPARTMENT OF PATHOLOGY AND GENOMIC MEDICINE Specimen Plasma specimen Performing Organization Address City/State/Zipcode Phone Number [facility] DEPARTMENT OF [address] [place] [address] PATHOLOGY AND GENOMIC MEDICINE after 12/10/2016 Insurance Payer Benefit Subscriber ID Type Phone Address Plan / Group MEDICARE MEDICARE xxxxxxxxxx Medicare [place], [place] PART A AND B BCBS BCBS xxxxxxxxxxxx Indemnity PAR/TRAD PLAN
--- OUTSIDE RECORDS SUMMARY | 2017-12-14 13:48 | XMS REPORT ---
Author Author [facility] Address Unknown Phone Unavailable Care Team Providers Care Noxious Weeds And Pest Inspector Name Role Phone LONDON HERRON Unavailable Unavailable Problems This patient has no known problems. Allergies, Adverse Reactions, Alerts This patient has no known allergies or adverse reactions. Medications This patient has no known medications. Results Test Description Test Time Test Comments Text Results Atomic Results Result Comments US ABDOMEN COMPLETE 2017-12-13 12:31:00 [place] [address] Patient Name: CALDERON SAMPSON MR #: [id number] : 1935 Age/Sex: 82/M Req #: [id number] Adm Physician: LONDON HERRON MD Ordered by: ANABEL CALDERÓN MD Report #: [id number] Location: MED/SURG2 Room/Bed: [facility] Procedure: [id number] US/US ABDOMEN COMPLETE Exam Date: Exam Time: REPORT STATUS: Signed EXAM: US ABDOMEN COMPLETE DATE: 12/13/2017 12:00 AM Time stamp on exam: 12:00 INDICATION: UTI COMPARISON: CT abdomen and pelvis 2017 TECHNIQUE: Transverse and longitudinal thompson scale and color doppler sonographic images of the upper abdomen were obtained. FINDINGS: LIVER 15 cm in the right midclavicular line. Increased parenchymal echogenicity, normal contour, no masses. SPLEEN 12.4 cm in maximum diameter. Normal echogenicity, no masses. GALLBLADDER Wall is at the upper limits of normal in thickness likely due to contracted status. Mild internal echogenic sludge. No pericholecystic fluid. Negative sonographic Eduardo's sign. BILE DUCTS No intra nor extra-hepatic biliary dilation. Common bile duct measures 0.3 cm PANCREAS: Visualized portions are normal. RIGHT KIDNEY: 12.7 cm Echogenicity: Normal Collecting System: No hydronephrosis Stones: None Cyst/Mass: Mid pole cyst measures 2.7 x 2.6 x 2.6 cm and contains a single thin internal septation. Upper pole cyst measures 1.9 x 1.8 x 2 cm. LEFT KIDNEY: 11.2 cm Echogenicity: Normal Collecting System: No hydronephrosis Stones: None Cyst/Mass: Simple cyst projects laterally from the interpolar region and measures 1.8 x 2.3 x 1.5 cm. Upper pole parenchymal cyst measures 4.4 x 3.2 x 3.5 cm and is somewhat lobulated in contour. Calcifications described on the comparison CT are poorly visualized by sonography. VESSELS: Aorta: Nonaneurysmal Inferior Vena Cava: Visualized portions are normal Main Portal Vein: 0.9 cm, normal size with hepatopetal flow. FREE FLUID: None IMPRESSION: Bilateral renal cysts. The largest right renal cyst is minimally complex. Gallbladder sludge with wall thickness at upper limits of normal, likely related to c ontracted state in the setting of a negative sonographic Eduardo sign. Left renal calculi seen on the comparison CT examination are poorly visualized by sonography. Increased hepatic parenchymal echogenicity. Refer to CT report for further details. Signed by: Dr. Anabel Bradshaw M.D. on 12/13/2017 12:40 PM Dictated By: ANABEL BRADSHAW MD 1240 Transcribed By: CHIKA on 12/13/17 1240 COPY TO: ANABEL CALDERÓN MD CHEST 2 VIEWS 2017-12-13 06:43:00 [place] [address] Patient Name: CALDERON SAMPSON MR #: [id number] : 1935 Age/Sex: 82/M Req #: [id number] Adm Physician: LONDON HERRON MD Ordered by: ANABEL CALDERÓN MD Report #: [id number] Location: MED/SURG2 Room/Bed: [facility] Procedure: [id number] DX/CHEST 2 VIEWS Exam Date: Exam Time: REPORT STATUS: Signed EXAM: CHEST 2 VIEWS, PA and lateral INDICATION: Shortness of breath COMPARISON: AP view of the chest 2017 FINDINGS: LINES/TUBES: None LUNGS: Stable bilateral peribronchial thickening and scattered atelectatic changes. PLEURA: Trace bilateral pleural effusions. HEART AND MEDIASTINUM: Stable appearance BONES AND SOFT TISSUES: No acute findings. IMPRESSION: No interval change. Signed by: Dr. Cain Corona M.D. on 12/13/2017 6:45 AM Dictated By: CAIN CORONA MD 4 Transcribed By: CHIKA on 12/13/1745 COPY TO: ANABEL CALDERÓN MD CT ABDOMEN/PELVIS 2017 15:51:00 [place] [address] Patient Name: CALDERON SAMPSON MR #: [id number] : 1935 Age/Sex: 82/M Req #: [id number] Adm Physician: LONDON HERRON MD Ordered by: QUINN LAMAR MD Report #: [id number] Location: [facility] Room/Bed: [place] [address] Procedure: [id number] CT/CT ABDOMEN/PELVIS WO Exam Date: Exam Time: REPORT STATUS: Signed EXAM: CT Abdomen and Pelvis WITHOUT contrast INDICATION: COMPARISON: None. TECHNIQUE: Abdomen and Pelvis was scanned utilizing a multidetector helical scanner without the use of IV contrast. Coronal and sagittal reformations were obtained. IV CONTRAST: None COMPLICATIONS: None RADIATION DOSE: Total DLP: 593 mGy*cm Estimated effective dose: (DLP x 0.015 x size factor) mSv CTDIvol has been reviewed. It is below the limits set by the Radiation Protocol Committee (RPC). Appropriate CT dose reduction techniques were utilized. FINDINGS: Abdomen: Lung Bases: Dense calcifications of the aortic valve versus postsurgical changes partially visualized. Atelectasis/scarring in the lung bases with minimal bronchi ectasis. Solid Organs: Increased density of the liver noted. Hypodensities in the kidneys are incompletely evaluated. Calcifications are present in the left kidney, largest 25 x 8 mm. Gas is present within the left renal collecting system. Adrenal glands, spleen, and pancreas grossly unremarkable nonenhanced exam. Upper GI Tract: Decompressed stomach limits evaluation. Questionable stranding about the duodenal C-loop region. Vascularity: Moderate aortic vascular calcifications. Lymph Nodes: No suspicious adenopathy by size criteria. Scattered small mesenteric and aortocaval lymph nodes noted. Other: None. Pelvis: Bladder: Decompressed by Merchant catheter. Gas present. Other: Small amount of fluid present in the pelvis, unusual male patient. Colon: No acute colonic findings. Appendix not inflamed. Bones: Advanced degenerative changes lumbar spine. IMPRESSION: 1. Large calcifications superior left kidney with gas in the left renal collecting system. While gas could be secondary to urinary bladder instrumentation, infectious process of the kidney should be considered. Clinical and laboratory correlation recommended. 2. Bilateral renal cysts, incompletely evaluated without IV contrast. There is a cyst on the right with probable thin partially calcified septation. 3. Increased density of the liver can be seen in the setting of amiodarone usage or other chronic liver processes. 4. Questionable stranding about the duodenal C-loop. Findings can be seen in the setting of pancreatitis, duodenitis, or cholecystitis. Clinical and laboratory correlation recommended. Ultrasound could be obtained for further evaluation. Signed by: Dr. Robert Santana MD on 2017 3:57 PM Dictated By: ROBERT SANTANA MD 56 Transcribed By: CHIKA on 12/12/171556 COPY TO: QUINN LAMAR MD CT BRAIN WO 2017 00:25:00 [place] [address] Patient Name: CALDERON SAMPSON MR #: [id number] : 1935 Age/Sex: 82/M Req #: [id number] Adm Physician: Ordered by: LUCIEN HIDALGO MD Report #: [id number] Location: ER Room/Bed: Procedure: [id number] CT/CT BRAIN WO Exam Date: Exam Time: REPORT STATUS: Signed Exam: Head CT without contrast History: Altered mental status, on Coumadin, Comparison studies: None Technique: Axial images were obtained from the skull base to the vertex. Coronal and sagittal images reconstructed from the axial data. Dose modulation, iterative reconstruction, and/or weight based adjustment of the mA/kV was utilized to reduce the radiation dose to as low as reasonably achievable. Radiation dose: Total DLP: 921 mGy*cm. Estimated effective dose: DLP x 0.015 Intravenous contrast: None Findings: Scalp: No abnormalities. Bones: No fractures, or aggressive-appearing blastic or lytic lesions. There are a few scattered subtle lytic foci in the calvarium and nonaggressive-appearing 7 mm sclerotic lesion in the right parietal calvarium which are nonspecific. Brain sulci: Mildly prominent. Ventricles: Moderately dilated, slightly disproportionate to sulcal prominence. With slightly greater dilatation along the frontal horns of the lateral ventricles. Findings may be compensatory related to a degree of central greater than peripheral cortical volume loss. Consider NPH only in the appropriate clinical setting. No acute hydrocephalus. Incidental anatomical variant cavum septum pellucid and cavum and cavum vergae. Extra-axial spaces: No masses, no fluid collection. Parenchyma: No mass, acute hemorrhage or acute or chronic cortical vascular insults. Ill-defined confluent hypodensities in the supratentorial white matter are nonspecific most compatible chronic microvascular ischemic changes. Sellar/suprasellar region: No abnormalities. Craniocervical junction: Patent foramen magnum. No Chiari one malformation. Incidental findings: Atherosclerotic calcifications in the carotid siphons. Punctate vascular or dystrophic calcification in the left sylvian fissure. IMPRESSION: 1. No acute hemorrhage or other acute intracranial abnormalities. 2. Generalized volume loss. 3. Moderate chronic microvascular ischemic changes. 4. Nonspecific ventriculomegaly may be due to volume loss. Consider NPH only in the appropriate clinical setting. Signed by: Dr. Anabel Vincent M.D. on 2017 12:34 AM Dictated By : ANABEL VINCENT MD Transcribed By: CHIKA on 1733 COPY TO: LUCIEN HIDALGO MD CHEST SINGLE (PORTABLE) 2017 00:18:00 [place] [address] Patient Name: CALDERON SAMPSON MR #: [id number] : 1935 Age/Sex: 82/M Req #: [id number] Adm Physician: Ordered by: LUCIEN HIDALGO MD Report #: [id number] Location: Room/Bed: Procedure: [id number] DX/CHEST SINGLE (PORTABLE) Exam Date: Exam Time: REPORT STATUS: Signed EXAM: CHEST SINGLE (PORTABLE), AP 1 view INDICATION: Fever and weakness COMPARISON: None FINDINGS: LINES/TUBES: None LUNGS: Bilateral perihilar bronchial thickening. PLEURA: No effusions or pneumothorax. HEART AND MEDIASTINUM: Normal size and contour. Median sternotomy wires and valve replacement. BONES AND SOFT TISSUES: No acute findings. IMPRESSION: Bilateral perihilar bronchial thickening. This could be secondary to infection or edema. Signed by: Dr. Cain Corona M.D. on 2017 12:19 AM Dictated By: CAIN CORONA MD Transcribed By: CHIKA on 1718 COPY TO: LUCIEN HIDALGO MD
--- OUTSIDE RECORDS SUMMARY | 2017-12-14 13:53 | XMS REPORT | Clinical Summary ---
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) Abnormal electrocardiogram 03/21/2017 Bifascicular block 03/21/2017 History of coronary artery bypass surgery 03/21/2017 Encounters Date Type Specialty Care Team Description 03/22/2017 Hospital Procedural Cardiology Chris Garcia MD Atrial fibrillation, Encounter persistent 03/22/2017 Anesthesia Procedural Cardiology Jimena Ackerman, Event 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 03/22/2017 Procedure Pass Procedural Cardiology 03/22/2017 Surgery Procedural Cardiology Chris Garcia MD Ep cardioversion [33459 (CPT)] after 12/11/2016 Social History Tobacco Use Types Packs/Day Years Used Date Former Smoker Smokeless Tobacco: Former User Alcohol Use Drinks/Week oz/Week Comments No Sex Assigned at Date Recorded Not on file Last Filed Vital Signs Vital Sign Reading Time Taken Blood Pressure 114/65 03/22/2017 8:20 AM ADVERTISING REPRESENTATIVE Pulse 59 03/22/2017 8:20 AM ADVERTISING REPRESENTATIVE Temperature 37.1 C (98.7 F) 03/22/2017 7:53 AM ADVERTISING REPRESENTATIVE Respiratory Rate 16 03/22/2017 8:20 AM ADVERTISING REPRESENTATIVE Oxygen Saturation 97% 03/22/2017 8:20 AM ADVERTISING REPRESENTATIVE Inhaled Oxygen - - Concentration Weight 86.2 kg (190 lb 2 oz) 03/22/2017 6:29 AM ADVERTISING REPRESENTATIVE Height 188 cm (6' 2") 03/22/2017 6:29 AM ADVERTISING REPRESENTATIVE Body Mass Index 24.41 03/22/2017 6:29 AM ADVERTISING REPRESENTATIVE Plan of Treatment Not on file Procedures Procedure Name Priority Date/Time Associated Diagnosis Comments EP CARDIOVERSION Routine 03/22/2017 Atrial fibrillation, Results for this 7:50 AM ADVERTISING REPRESENTATIVE persistent procedure are in the results section. ECG 12-LEAD STAT 03/22/2017 Results for this 7:47 AM ADVERTISING REPRESENTATIVE procedure are in the results section. ZZESTIMATED GFR STAT 03/22/2017 Results for this 6:14 AM ADVERTISING REPRESENTATIVE procedure are in the results section. PROTHROMBIN TIME WITH INR STAT 03/22/2017 Results for this 6:14 AM ADVERTISING REPRESENTATIVE procedure are in the results section. BASIC METABOLIC PANEL STAT 03/22/2017 Results for this 6:14 AM ADVERTISING REPRESENTATIVE procedure are in the results section. HC COMPLETE BLD COUNT STAT 03/22/2017 Results for this W/AUTO DIFF 6:14 AM ADVERTISING REPRESENTATIVE procedure are in the results section. ECG 12-LEAD STAT 03/22/2017 Results for this 6:12 AM ADVERTISING REPRESENTATIVE procedure are in the results section. after 12/11/2016 Results * Cv electrophysiology procedure (03/22/2017 7:50 AM) Narrative Performed At [facility] After IV sedation, synchronized cardioversion was performed delivering 200 Joules of energy via AP Zoll pads with rhythm converted to sinus rhythm. Performing Organization Address City/State/Zipcode Phone Number [facility] [address] [place] [address] * ECG 12 lead (03/22/2017 7:47 AM) Only the most recent of 2 results within the time period is included. Ventricular rate 56 [facility] Atrial rate [address] [facility] [address] interval 214 [facility] QRSD interval 154 [facility] QT interval 510 [facility] QTC interval 492 [facility] P axis 1 62 [facility] QRS axis 1 -71 [facility] T wave axis 24 [facility] EKG impression Sinus bradycardia with 1st [facility] MUSE degree AV block with premature atrial complexes-Right bundle branch block-Left anterior fascicular block-^^^ Bifascicular block ^^^-Abnormal ECG-In automated comparison with ECG of 22-MAR-2017 06:12,-Sinus rhythm has replaced Atrial fibrillation- Performing Organization Address City/[facility]/Zipcode Phone Number [facility] [address] [place] [address] * Estimated GFR (03/22/2017 6:14 AM) GFR Non Af Amer 72 mL/min/1.73 m2 [facility] DEPARTMENT OF PATHOLOGY AND GENOMIC MEDICINE GFR Af Amer 87 mL/min/1.73 m2 [facility] DEPARTMENT OF Comment: PATHOLOGY AND Chronic kidney [...] Americans. Specimen Plasma specimen Performing Organization Address City/[facility]/Zipcode Phone Number [facility] DEPARTMENT OF [address] [place] [address] PATHOLOGY AND GENOMIC MEDICINE * Prothrombin time with INR (03/22/2017 6:14 AM) Prothrombin time 29.7 (H) 12.0 - 15.0 sec [facility] DEPARTMENT OF PATHOLOGY AND GENOMIC MEDICINE INR 2.8 [facility] DEPARTMENT OF Comment: PATHOLOGY AND The International Normalized GENOMIC MEDICINE Ratio (INR) is a therapeutic monitoring tool for patients who are stable on oral anticoagulant therapy. An INR of 2.0-3.0 is suggested for deep vein thrombosis/pulmonary embolism. Specimen Blood Performing Organization Address City/[facility]/Zipcode Phone Number [address] [address] PATHOLOGY AND GENOMIC MEDICINE * CBC with platelet and differential (03/22/2017 6:14 AM) WBC 6.45 4.50 - 11.00 k/uL [facility] DEPARTMENT OF PATHOLOGY AND GENOMIC MEDICINE RBC 3.84 (L) 4.40 - 6.00 m/uL [facility] DEPARTMENT OF PATHOLOGY AND GENOMIC MEDICINE HGB 11.9 (L) 14.0 - 18.0 g/dL [facility] DEPARTMENT OF PATHOLOGY AND GENOMIC MEDICINE HCT 34.9 (L) 41.0 - 51.0 % [facility] DEPARTMENT OF PATHOLOGY AND GENOMIC MEDICINE MCV 90.9 82.0 - 100.0 fL [facility] DEPARTMENT OF PATHOLOGY AND GENOMIC MEDICINE MCH 31.0 27.0 - 34.0 pg [facility] DEPARTMENT OF PATHOLOGY AND GENOMIC MEDICINE MCHC 34.1 31.0 - 37.0 g/dL [facility] DEPARTMENT OF PATHOLOGY AND GENOMIC MEDICINE RDW - SD 40.8 37.0 - 55.0 fL [facility] DEPARTMENT OF PATHOLOGY AND GENOMIC MEDICINE MPV 10.7 8.8 - 13.2 fL [facility] DEPARTMENT OF PATHOLOGY AND GENOMIC MEDICINE Platelet count 182 150 - 400 k/uL [facility] DEPARTMENT OF PATHOLOGY AND GENOMIC MEDICINE Nucleated RBC 0.00 /100 WBC [facility] DEPARTMENT OF PATHOLOGY AND GENOMIC MEDICINE Neutrophils 61.7 39.0 - 69.0 % [facility] DEPARTMENT OF PATHOLOGY AND GENOMIC MEDICINE Lymphocytes 28.7 25.0 - 45.0 % [facility] DEPARTMENT OF PATHOLOGY AND GENOMIC MEDICINE Monocytes 7.6 0.0 - 10.0 % [facility] DEPARTMENT OF PATHOLOGY AND GENOMIC MEDICINE Eosinophils 0.9 0.0 - 5.0 % [facility] DEPARTMENT OF PATHOLOGY AND GENOMIC MEDICINE Basophils 0.3 0.0 - 1.0 % [facility] DEPARTMENT OF PATHOLOGY AND GENOMIC MEDICINE Immature granulocytes 0.8Comment: "Immature 0.0 - 1.0 % [facility] DEPARTMENT OF granulocytes" (promyelocytes, PATHOLOGY AND myelocytes, metamyelocytes) GENOMIC MEDICINE Specimen Blood Performing Organization Address City/[facility]/Zipcode Phone Number [place] [phone] [place] [address] PATHOLOGY AND GENOMIC MEDICINE * Basic metabolic panel (03/22/2017 6:14 AM) Sodium 138 135 - 148 mEq/L [facility] DEPARTMENT OF PATHOLOGY AND GENOMIC MEDICINE Potassium 3.9 3.5 - 5.0 mEq/L [facility] DEPARTMENT OF PATHOLOGY AND GENOMIC MEDICINE Chloride 99 98 - 112 mEq/L [facility] DEPARTMENT OF PATHOLOGY AND GENOMIC MEDICINE CO2 22 (L) 24 - 31 mEq/L [facility] DEPARTMENT OF PATHOLOGY AND GENOMIC MEDICINE Anion gap 17 (H) 7 - 15 mEq/L [facility] DEPARTMENT OF Comment: PATHOLOGY AND Starting from May GENOMIC MEDICINE , anion gap calculation no longer incorporates potassium. Please note the change. BUN 20 8 - 23 mg/dL [facility] DEPARTMENT OF PATHOLOGY AND GENOMIC MEDICINE Creatinine 1.0 0.7 - 1.2 mg/dL [facility] DEPARTMENT OF PATHOLOGY AND GENOMIC MEDICINE Glucose 201 (H) 65 - 99 mg/dL [facility] DEPARTMENT OF PATHOLOGY AND GENOMIC MEDICINE Calcium 9.2 8.8 - 10.2 mg/dL [facility] DEPARTMENT OF PATHOLOGY AND GENOMIC MEDICINE Specimen Plasma specimen Performing Organization Address City/State/Zipcode Phone Number [facility] DEPARTMENT OF [address] [place] [address] PATHOLOGY AND GENOMIC MEDICINE after 12/11/2016 Insurance Payer Benefit Subscriber ID Type Phone Address Plan / Group MEDICARE MEDICARE xxxxxxxxxx Medicare [place], [place] PART A AND B BCBS BCBS xxxxxxxxxxxx Indemnity PAR/TRAD PLAN
[2017-12-14] MEDS ORDERED: ENOXAPARIN SOD INJ 40 MG/0.4 ML SYR SC NR (14:00)
[2017-12-14] MEDS: NICOTINE 14 MG/EA PATCH TOP SCH (15:00)
[2017-12-14] MEDS: WARFARIN SOD 5 MG TAB PO SCH (17:00)
[2017-12-14] MEDS ORDERED: WARFARIN SOD 2 MG TAB PO SCH (17:00)
[2017-12-14 20:20] VITALS: BP 177/78
[2017-12-14] MEDS: SIMVASTATIN 40 MG TAB PO SCH (21:43)
[2017-12-14] MEDS: ENOXAPARIN SODIUM INJ 100 MG/ML SYR SC SCH (21:43)
[2017-12-14] MEDS: DONEPEZIL HCL 5 MG TAB PO SCH (21:43)
[2017-12-15] VITALS (8 sets, daily range): BP systolic 117–176; BP diastolic 62–81
[2017-12-15 04:53] LABS: INR 1.38; PROTHROMBIN TIME 18.1 seconds (11.9-14.5)
[2017-12-15 05:08] LABS: ALANINE AMINOTRANSFERASE 91 IU/L (0-55); ALBUMIN/GLOBULIN RATIO 0.9 (0.8-2.0); ALKALINE PHOSPHATASE 109 IU/L (40-150); ANION GAP 17.3 mmol/L (8-16); BLOOD UREA NITROGEN 18 mg/dL (7-26); BUN/CREATININE RATIO 21 (6-25); CALCIUM 9.2 mg/dL (8.4-10.2); CARBON DIOXIDE 21 mmol/L (22-29); CHLORIDE 100 mmol/L (98-107); CREATININE, SERUM 0.87 mg/dL (0.72-1.25); EST GLOMERULAR FILTRATION RATE > 60 ML/MIN (60-); GLUCOSE 162 mg/dL (74-118); POTASSIUM 3.3 mmol/L (3.5-5.1); SODIUM 135 mmol/L (136-145)
[2017-12-15] MEDS: PIPER-TAZ 3.375 GM 50 ML IV SCH ×3 (05:38→22:40)
[2017-12-15] MEDS ORDERED: HYDRALAZINE HCL 20 MG/ML VIAL IV PRN (06:30)
[2017-12-15] MEDS: INSULIN LISPRO 100 UNIT/1 ML 3ML VIAL SQ SCH ×4 (07:30→20:46)
[2017-12-15] MEDS: ENOXAPARIN SODIUM INJ 100 MG/ML SYR SC SCH ×2 (09:00→20:46)
[2017-12-15] MEDS: NICOTINE 14 MG/EA PATCH TOP SCH ×2 (09:00→12:40)
[2017-12-15] MEDS: ESCITALOPRAM OXALATE 10 MG TAB PO SCH (12:40)
[2017-12-15] MEDS: AMIODARONE HCL 200 MG TAB PO SCH (12:40)
[2017-12-15] MEDS: ASPIRIN 81 MG CHEW TAB PO SCH (12:40)
[2017-12-15] MEDS: PROPRANOLOL HCL 80 MG CAPCR PO SCH (12:40)
[2017-12-15] MEDS ORDERED: PROPOFOL IV EMULSION 10 MG/ML 50 ML VIAL ONE (17:12)
[2017-12-15] MEDS ORDERED: LIDOCAINE HCL 2% LOCAL INJ 5 ML SDV VIAL INJ ONE (17:12)
[2017-12-15] MEDS: WARFARIN SOD 5 MG TAB PO SCH (17:27)
[2017-12-15] MEDS: BALSAM PERU/CASTOR OIL 60 GM OINT...G. TP SCH (17:27)
[2017-12-15] MEDS ORDERED: FENTANYL CITRATE/PF 100MCG/2 ML INJ ONE (17:46)
[2017-12-15] MEDS: DONEPEZIL HCL 5 MG TAB PO SCH (20:46)
[2017-12-15] MEDS: SIMVASTATIN 40 MG TAB PO SCH (20:46)
[2017-12-16] VITALS (7 sets, daily range): BP systolic 127–151; BP diastolic 56–72
[2017-12-16] MEDS: PIPER-TAZ 3.375 GM 50 ML IV SCH ×3 (05:35→22:25)
[2017-12-16 06:26] LABS: INR 1.31; PROTHROMBIN TIME 17.4 seconds (11.9-14.5)
[2017-12-16 06:36] LABS: ALANINE AMINOTRANSFERASE 97 IU/L (0-55); ALBUMIN 2.7 g/dL (3.5-5.0); ALBUMIN/GLOBULIN RATIO 0.9 (0.8-2.0); ALKALINE PHOSPHATASE 96 IU/L (40-150); ANION GAP 14.1 mmol/L (8-16); BLOOD UREA NITROGEN 22 mg/dL (7-26); BUN/CREATININE RATIO 26 (6-25); CALCIUM 8.8 mg/dL (8.4-10.2); CARBON DIOXIDE 24 mmol/L (22-29); CHLORIDE 97 mmol/L (98-107); CREATININE, SERUM 0.86 mg/dL (0.72-1.25); EST GLOMERULAR FILTRATION RATE > 60 ML/MIN (60-); GLUCOSE 167 mg/dL (74-118); POTASSIUM 3.1 mmol/L (3.5-5.1); SODIUM 132 mmol/L (136-145)
[2017-12-16] MEDS ORDERED: POTASSIUM CHLORIDE 20 MEQ TAB CR PO ONE (07:30)
[2017-12-16] MEDS: INSULIN LISPRO 100 UNIT/1 ML 3ML VIAL SQ SCH ×4 (09:00→21:44)
[2017-12-16] MEDS: NICOTINE 14 MG/EA PATCH TOP SCH ×2 (09:00→09:45)
[2017-12-16] MEDS: BALSAM PERU/CASTOR OIL 60 GM OINT...G. TP SCH ×2 (09:00→17:05)
[2017-12-16] MEDS: PROPRANOLOL HCL 80 MG CAPCR PO SCH (09:45)
[2017-12-16] MEDS: ASPIRIN 81 MG CHEW TAB PO SCH (09:45)
[2017-12-16] MEDS: ENOXAPARIN SODIUM INJ 100 MG/ML SYR SC SCH ×2 (09:45→20:45)
[2017-12-16] MEDS: AMIODARONE HCL 200 MG TAB PO SCH (09:45)
[2017-12-16] MEDS: ESCITALOPRAM OXALATE 10 MG TAB PO SCH (09:45)
[2017-12-16] MEDS ORDERED: WARFARIN SOD 5 MG TAB PO ONE (17:00)
[2017-12-16] MEDS: WARFARIN SOD 5 MG TAB PO SCH (17:15)
[2017-12-16] MEDS: SIMVASTATIN 40 MG TAB PO SCH (20:45)
[2017-12-16] MEDS: DONEPEZIL HCL 5 MG TAB PO SCH (20:45)
[2017-12-17] VITALS (7 sets, daily range): BP systolic 142–169; BP diastolic 67–77
[2017-12-17 04:51] LABS: INR 1.39; PROTHROMBIN TIME 18.2 seconds (11.9-14.5)
[2017-12-17 05:00] LABS: ALANINE AMINOTRANSFERASE 92 IU/L (0-55); ALBUMIN 2.9 g/dL (3.5-5.0); ALBUMIN/GLOBULIN RATIO 0.9 (0.8-2.0); ALKALINE PHOSPHATASE 104 IU/L (40-150); ANION GAP 18.2 mmol/L (8-16); BLOOD UREA NITROGEN 22 mg/dL (7-26); BUN/CREATININE RATIO 24 (6-25); CALCIUM 9.1 mg/dL (8.4-10.2); CARBON DIOXIDE 25 mmol/L (22-29); CHLORIDE 100 mmol/L (98-107); CREATININE, SERUM 0.93 mg/dL (0.72-1.25); EST GLOMERULAR FILTRATION RATE > 60 ML/MIN (60-); GLUCOSE 143 mg/dL (74-118); POTASSIUM 3.2 mmol/L (3.5-5.1); SODIUM 140 mmol/L (136-145)
[2017-12-17] MEDS: PIPER-TAZ 3.375 GM 50 ML IV SCH (05:58)
[2017-12-17] MEDS: ENOXAPARIN SODIUM INJ 100 MG/ML SYR SC SCH ×2 (08:16→21:18)
[2017-12-17] MEDS: AMIODARONE HCL 200 MG TAB PO SCH (08:16)
[2017-12-17] MEDS: ASPIRIN 81 MG CHEW TAB PO SCH (08:16)
[2017-12-17] MEDS: ESCITALOPRAM OXALATE 10 MG TAB PO SCH (08:16)
[2017-12-17] MEDS: NICOTINE 14 MG/EA PATCH TOP SCH (08:17)
[2017-12-17] MEDS: BALSAM PERU/CASTOR OIL 60 GM OINT...G. TP SCH ×2 (08:17→17:27)
[2017-12-17] MEDS: INSULIN LISPRO 100 UNIT/1 ML 3ML VIAL SQ SCH ×4 (08:49→21:21)
[2017-12-17] MEDS ORDERED: CIPROFLOXACIN 500 MG TAB PO SCH (09:00)
[2017-12-17] MEDS: POTASSIUM CHLORIDE 20 MEQ TAB CR PO PRN (09:37)
[2017-12-17] MEDS: CEFTRIAXONE SOD 1 GM VIAL IV SCH (15:40)
[2017-12-17] MEDS: WARFARIN SOD 5 MG TAB PO SCH (17:28)
[2017-12-17] MEDS: DONEPEZIL HCL 5 MG TAB PO SCH (21:17)
[2017-12-17] MEDS: SIMVASTATIN 40 MG TAB PO SCH (21:18)
[2017-12-18] VITALS (7 sets, daily range): BP systolic 133–182; BP diastolic 64–80
[2017-12-18 05:03] LABS: INR 1.72; PROTHROMBIN TIME 21.5 seconds (11.9-14.5)
[2017-12-18 06:55] LABS: ANION GAP 14.2 mmol/L (8-16); BLOOD UREA NITROGEN 19 mg/dL (7-26); BUN/CREATININE RATIO 23 (6-25); CALCIUM 8.7 mg/dL (8.4-10.2); CARBON DIOXIDE 24 mmol/L (22-29); CHLORIDE 104 mmol/L (98-107); CREATININE, SERUM 0.83 mg/dL (0.72-1.25); EST GLOMERULAR FILTRATION RATE > 60 ML/MIN (60-); GLUCOSE 123 mg/dL (74-118); POTASSIUM 3.2 mmol/L (3.5-5.1); SODIUM 139 mmol/L (136-145)
[2017-12-18] MEDS: INSULIN LISPRO 100 UNIT/1 ML 3ML VIAL SQ SCH ×4 (07:30→21:00)
[2017-12-18] MEDS: AMIODARONE HCL 200 MG TAB PO SCH (09:25)
[2017-12-18] MEDS: LOSARTAN POTASSIUM 25 MG TAB PO SCH ×2 (09:25→18:10)
[2017-12-18] MEDS: NICOTINE 14 MG/EA PATCH TOP SCH (09:25)
[2017-12-18] MEDS: ESCITALOPRAM OXALATE 10 MG TAB PO SCH (09:25)
[2017-12-18] MEDS: ASPIRIN 81 MG CHEW TAB PO SCH (09:25)
[2017-12-18] MEDS: ENOXAPARIN SODIUM INJ 100 MG/ML SYR SC SCH ×2 (09:25→20:31)
[2017-12-18] MEDS: BALSAM PERU/CASTOR OIL 60 GM OINT...G. TP SCH ×2 (09:25→18:10)
[2017-12-18] MEDS: POTASSIUM CHLORIDE 20 MEQ TAB CR PO PRN (09:45)
[2017-12-18] MEDS: CEFTRIAXONE SOD 1 GM VIAL IV SCH (15:16)
[2017-12-18] MEDS: WARFARIN SOD 5 MG TAB PO SCH (18:10)
--- NOTE | 2017-12-18 19:19 | Progress Note ---
DATE: December 18, 2017 SUBJECTIVE: Patient reports no abdominal pain. She has nonprogressive dysphagia mainly for solid as well as liquid for many months. Never had any endoscopic evaluation. Denies any lower GI symptoms. REVIEW OF SYSTEMS GENERAL: No fever or chills. CVS: No chest pain or palpitations. RESPIRATORY: No cough or expectoration. MEDICATIONS: I reviewed the MAR. Patient is on warfarin. PHYSICAL EXAMINATION VITAL SIGNS: Temperature 97, pulse 52, respirations 18, blood pressure 147/64, oxygen saturation 98% on 2 liter of nasal cannula. GENERAL: Obese body habitus, not in any acute distress. HEENT: Oral mucosa is moist. Anicteric sclerae. ABDOMEN: Obese, soft, nondistended. Mild palpable epigastric tenderness on deep palpation without rebound, rigidity, or guarding. Positive bowel sounds. LABS: PT 21.5, INR 1.72. WBC 8.76, hemoglobin 11.1, hematocrit 33.6, MCV 92.6, platelet count 127. Sodium 139, potassium 3.2, chloride 104, bicarb 24, BUN 19, creatinine 0.83. IMPRESSION: Nonprogressive dysphagia both to solid and liquid for many months. No allowing feature such as odynophagia, early satiation or weight loss. Patient has borderline anemia. PLAN: Continue present oral diet. EGD is planned on Wednesday by Dr. Oliveros. Patient has thrombocytopenia with increased liver echogenicity, abdominal obesity. This makes me think that patient likely has underlying [place] liver cirrhosis with underlying portal hypertension causing thrombocytopenia. Patient should be evaluated and further worked up for a liver cirrhosis electively as an outpatient. Job#: [id number] VAS
[2017-12-18] MEDS: DONEPEZIL HCL 5 MG TAB PO SCH (20:31)
[2017-12-18] MEDS: SIMVASTATIN 40 MG TAB PO SCH (20:31)
[2017-12-19] VITALS (7 sets, daily range): BP systolic 147–179; BP diastolic 71–98
--- NOTE | 2017-12-19 04:14 | Consultation ---
DATE OF CONSULTATION: December 18, 2017 NEUROLOGY CONSULTATION HISTORY OF PRESENT ILLNESS: Mr. Arndt is an 82-year-old right hand dominant man with past medical history significant for dementia admitted to [facility] on December 12, 2017 with urosepsis with Escherichia coli. A neurology consultation is requested for worsening confusion and visual hallucinations. According to the patient's son, who is at the bedside, the patient has had worsening of his baseline confusion since his admission to the hospital. He has experienced visual hallucinations as well. Mr. Arndt' son reports the patient has been disoriented to place and situation. At different times, he has told his son one of his grandsons is playing in field. He has told his son he is staying in a hotel and did not return until 3 o'clock in the morning. He has told his son there are individuals walking outside of his room carrying golf pegs. He has also told his son he sees cats climbing the byrd. Mr. Arndt's son does report the patient's confusion and visual hallucinations do appear to be gradually improving the longer he stays in the hospital. The patient's son reports the diagnosis of dementia, probably of the Alzheimer's type, was made in either June or July of 2017. At that time, the family was told Mr. Arndt is in early stages of dementia. He is being treated with donepezil 5 mg by mouth at bedtime daily. The patient's outpatient neurologist is Dr. Ellis Wagner. At home, the patient is independent in his activities of daily living-bathing, grooming, dressing, and toileting. The patient has been told repeatedly to use a walker for ambulation due to his known history of peripheral neuropathy. However, the patient often refuses to do so. Mr. Arndt' son does not report the patient to forget the names of family members or close friends, misplaces items frequently, or repeat question/stories. Mr. Arndt lives in a house with his . He does the laundry and performs other chores around the house without difficulty. The patient continues to drive, although his children wish he would stop driving due to his "slowed reflexes." The patient's son does report Mr. Arndt would become lost while driving if his were not in the car with him to navigate. Patient's manages the household finances and has always done so. For the past year, the patient's children have scheduled all appointments for their parents. Mr. Arndt' assists him with his medications with oversight from their children. REVIEW OF SYSTEMS: Unable to assess secondary to the patient being drowsy. PAST MEDICAL HISTORY: History of diabetes mellitus, coronary artery disease, depression, prostate cancer, dementia, and peripheral neuropathy. PAST SURGICAL HISTORY: Coronary artery bypass graft, aortic valve replacement, tonsillectomy, appendectomy, bilateral cataract removal, and surgical repair of ankle fracture. FAMILY MEDICAL HISTORY: The patient's paternal and maternal grandparents are . Their medical histories are unknown. The patient's father is . His medical history is unknown. The patient's mother is from natural causes/old age. Mr. Arndt had 3 brothers. Two brothers are alive and healthy. One brother is from complications of diabetes mellitus. Mr. Arndt had 4 children, 3 sons and 1 daughter. The oldest son is alive and has diabetes mellitus. The middle son and daughter are alive and healthy. The youngest son is from suicide. SOCIAL HISTORY: The patient is . He is retired. Mr. Arndt chews tobacco. He previously smoked cigarettes, but quit doing so approximately 40 years ago. The patient's son endorses a prior history of social alcohol use; however, the patient does not currently consume alcohol. HOME MEDICATIONS: Aspirin 81 mg by mouth daily, amiodarone 400 mg by mouth daily, donepezil 5 mg by mouth at bedtime daily, Lexapro 10 mg by mouth daily, linagliptin 5 mg by mouth daily, propranolol 80 mg by mouth daily, simvastatin 40 mg by mouth at bedtime daily, and warfarin 3 mg by mouth daily. ALLERGIES: NO KNOWN DRUG ALLERGIES. NO KNOWN FOOD ALLERGIES. NO KNOWN ALLERGIES TO LATEX. NO KNOWN ALLERGIES TO IODINE OR OTHER CONTRAST MATERIALS. PHYSICAL EXAMINATION VITAL SIGNS: Height 74 inches, weight 199 pounds, BMI 25.5 kg/m2, blood pressure 147/64 mmHg, pulse 52 beats per minute, respiratory rate 18 breaths per minute, and oxygen saturation 98% on 2 liters by nasal cannula. GENERAL: The patient is drowsy, but arouses to verbal stimuli. No acute distress. HEENT: Normocephalic, atraumatic. Pupils are surgical. Moist mucous membranes. NECK: Supple. No appreciable thyromegaly. No appreciable carotid bruits. CARDIOVASCULAR: S1 and S2. Regular rate and rhythm. No murmurs, rubs, or gallops. RESPIRATORY: Clear to auscultation bilaterally. No wheezes, rhonchi, or rales. EXTREMITIES: Skin is warm and dry. No clubbing, cyanosis, or edema. The posterior tibial and dorsalis pedis pulses are 1+ and symmetric. SKIN: No rashes or lesions. NEUROLOGIC MEMORY/ATTENTION: The patient is drowsy, but arouses to verbal stimuli. Mr. Arndt is oriented to person, place ([facility], [facility], state), time (days of week, months, season, year), and minimally to situation. CRANIAL NERVES: Cranial nerve I - not tested. Cranial nerves II, III, IV, and - pupils are surgical. Extraocular movements are grossly intact. No nystagmus. Cranial nerve V - sensation to light touch is intact in the bilateral V1 through V3 distributions. Strength in the temporalis and masseter muscles is within normal limits. Cranial nerve VII - the face is symmetric as are all facial movements. Strength is within normal limits. Cranial nerve VIII - hearing is diminished to finger rub bilaterally. Cranial nerves IX, X - the soft palate elevates equally and symmetrically. Cranial nerve XI - normal strength of the bilateral sternocleidomastoid and trapezius muscles. Cranial nerve XII - the tongue protrudes midline and moves symmetrically from side to side. STRENGTH: Bulk is normal. Strength is 5/5 in the bilateral deltoids, biceps, triceps, wrist flexors and extensors, finger flexors and extensors, intrinsic hand muscles, hip flexors, knee flexors and extensors, ankle dorsiflexion and plantar flexion, and intrinsic foot muscles. Tone is normal. DTRs: Deep tendon reflexes are 1+ and symmetric at the triceps, biceps, and brachioradialis. Deep tendon reflexes are absent and symmetric at the patellas and Achilles. Plantar responses are flexor bilaterally. SENSATION: Sensation is intact to light touch in both arms and both legs. CEREBELLAR: Unable to assess secondary to the patient being drowsy. GAIT: Deferred. SPEECH: Spontaneous speech is normal without appreciable dysarthria or aphasia. Repetition is intact. INVOLUNTARY MOVEMENTS: None. PRONATOR DRIFT: None. LABORATORY DATA: The patient's basic metabolic panel is significant for mildly decreased potassium of 3.2 and an elevated serum glucose of 123. A liver function panel drawn on December 17, 2017 reveals an elevated total bilirubin of 2.0, an elevated AST of 60, an elevated ALT of 92, a mildly decreased total protein is 6.2, and mildly decreased albumin of 2.9. The patient's serum glucoses have ranged from 123 to 261 over the past 24 hours. PT 21.5 and INR 1.72. DIAGNOSTIC STUDIES: Electrocardiogram on December 11, 2017: Sinus rhythm at [address] of brain without contrast on December 17, 2017: On my review, there is no evidence of recent large territorial ischemia, hemorrhage, mass, or mass effect. There is diffuse cerebral atrophy, more than expected for age, with compensatory ventricular dilatation. There are findings compatible with [id number] chronic small vessel ischemic disease. CT of the abdomen pelvis on December 12, 2017: 1. Large calcifications superior left kidney with gas in the left renal collecting system. While gas could be secondary to urinary bladder instrumentation, infectious process of the kidney should be considered. Clinical and laboratory correlation is recommended. 2. Bilateral renal cysts, incompletely evaluated without IV contrast. There is a cyst on the right with probable thin partially calcified septation. 3. Increased density of the liver can be seen in the setting of amiodarone usage or other chronic liver processes. 4. Questionable stranding about the duodenal C-loop. Findings can be seen in the setting of pancreatitis, duodenitis, or cholecystitis. Clinical and laboratory correlation recommended. Ultrasound could be obtained for further evaluation. Abdominal ultrasound on December 13, 2017: Bilateral renal cysts. The largest right renal cyst is minimally complex. Gallbladder sludge with wall thickness at upper limits of normal, likely related to contracted state in the setting of a negative sonographic Eduardo's sign. Left renal calculi seen on the comparison CT examination are poorly visualized by sonography. Increased hepatic parenchymal echogenicity. Refer to CT report for further details. Chest x-ray on December 13, 2017: No interval change. Echocardiogram on December 15, 2017: Ejection fraction 50%-55%. Concentric left ventricular hypertrophy. Left atrial enlargement. Prosthetic aortic valve. Trace aortic insufficiency, pulmonic insufficiency, and tricuspid regurgitation. [id number] mitral regurgitation. ASSESSMENT AND PLAN: Mr. Arndt is an 82-year-old right hand dominant man with dementia, admitted to [facility] on December 12, 2017 with urosepsis secondary to Escherichia coli with worsening confusion and visual hallucinations. The patient's neurological examination is nonfocal. Mr. Arndt is found to be drowsy, but does arouse easily to verbal stimuli. Patient's laboratory data and other diagnostic studies have been reviewed and are documented above. Mr. Arndt' worsening confusion and visual hallucinations are due to baseline dementia, probably of the Alzheimer's type, with superimposed urosepsis and delirium due to the patient being taken away from his normal location and routine. RECOMMENDATIONS 1. Continue intravenous antibiotics for E. coli UTI. Treatment with ciprofloxacin has been discontinued. A known common side effect of ciprofloxacin is visual hallucinations. Since this medication's discontinuation, the patient's visual hallucinations have diminished in frequency. 2. Continue the patient's home medication of donepezil 5 mg by mouth at bedtime daily. 3. Avoid sedative/hypnotic and pain medications as these will alter the patient's sensorium. 4. Utilize environmental cues to combat delirium. 5. Defer treatment of the remaining medical comorbidities to the primary and other services following the patient. Thank you for this consultation. I will continue to follow the patient while he remains in the hospital. TIME SPENT: 70 minutes. Job#: [id number] ROJAS MATA
[2017-12-19 04:53] LABS: INR 1.93; PROTHROMBIN TIME 23.6 seconds (11.9-14.5)
[2017-12-19 06:47] LABS: ANION GAP 16.5 mmol/L (8-16); BLOOD UREA NITROGEN 16 mg/dL (7-26); BUN/CREATININE RATIO 18 (6-25); CALCIUM 8.7 mg/dL (8.4-10.2); CARBON DIOXIDE 22 mmol/L (22-29); CHLORIDE 103 mmol/L (98-107); CREATININE, SERUM 0.89 mg/dL (0.72-1.25); EST GLOMERULAR FILTRATION RATE > 60 ML/MIN (60-); GLUCOSE 140 mg/dL (74-118); POTASSIUM 3.5 mmol/L (3.5-5.1); SODIUM 138 mmol/L (136-145)
[2017-12-19] MEDS: INSULIN LISPRO 100 UNIT/1 ML 3ML VIAL SQ SCH ×4 (07:30→20:33)
[2017-12-19] MEDS: LOSARTAN POTASSIUM 25 MG TAB PO SCH ×2 (08:31→16:42)
[2017-12-19] MEDS: ESCITALOPRAM OXALATE 10 MG TAB PO SCH (08:31)
[2017-12-19] MEDS: NICOTINE 14 MG/EA PATCH TOP SCH (08:31)
[2017-12-19] MEDS: BALSAM PERU/CASTOR OIL 60 GM OINT...G. TP SCH ×2 (08:31→16:42)
[2017-12-19] MEDS: ENOXAPARIN SODIUM INJ 100 MG/ML SYR SC SCH ×2 (08:31→20:44)
[2017-12-19] MEDS: ASPIRIN 81 MG CHEW TAB PO SCH (08:31)
[2017-12-19] MEDS: AMIODARONE HCL 200 MG TAB PO SCH (08:31)
[2017-12-19] MEDS: CEFTRIAXONE SOD 1 GM VIAL IV SCH (16:41)
[2017-12-19] MEDS: WARFARIN SOD 5 MG TAB PO SCH (16:43)
[2017-12-19] MEDS: SIMVASTATIN 40 MG TAB PO SCH (20:44)
[2017-12-19] MEDS: DONEPEZIL HCL 5 MG TAB PO SCH (20:44)
[2017-12-20] VITALS: BP 166/76
[2017-12-20 04:00] VITALS: BP 170/79
[2017-12-20 04:43] LABS: INR 2.24; PROTHROMBIN TIME 26.5 seconds (11.9-14.5)
[2017-12-20] MEDS: INSULIN LISPRO 100 UNIT/1 ML 3ML VIAL SQ SCH ×3 (07:30→16:15)
[2017-12-20 08:00] VITALS: BP 178/82
[2017-12-20] MEDS ORDERED: HYDRALAZINE HCL 20 MG/ML VIAL IV PRN (08:30)
[2017-12-20] MEDS: LOSARTAN POTASSIUM 25 MG TAB PO SCH ×2 (08:55→16:40)
[2017-12-20] MEDS: ESCITALOPRAM OXALATE 10 MG TAB PO SCH (08:55)
[2017-12-20] MEDS: BALSAM PERU/CASTOR OIL 60 GM OINT...G. TP SCH (08:55)
[2017-12-20] MEDS: ASPIRIN 81 MG CHEW TAB PO SCH (08:55)
[2017-12-20] MEDS: NICOTINE 14 MG/EA PATCH TOP SCH (09:00)
[2017-12-20] MEDS ORDERED: AMIODARONE HCL 200 MG TAB PO SCH (09:00)
[2017-12-20 11:36] VITALS: BP 178/82
[2017-12-20 12:00] VITALS: BP 157/73
[2017-12-20] MEDS: CEFTRIAXONE SOD 1 GM VIAL IV SCH (15:45)
[2017-12-20 16:00] VITALS: BP 165/70
[2017-12-20] MEDS: WARFARIN SOD 5 MG TAB PO SCH (16:40)
--- NOTE | 2017-12-21 17:34 | Discharge Summary ---
FINAL DIAGNOSES 1. Escherichia coli urinary tract infection. 2. 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 3. Dementia. 4. Hypertension. 5. Coronary artery disease. 6. Peripheral neuropathy. ADMISSION HISTORY AND HOSPITAL COURSE: Mr. Arndt is an 82-year-old male who presented with chills and was incontinent of the urine, found to have UTI and E. coli sepsis. Urology and ID were consulted. Patient was continued on IV antibiotic. He gradually improved and has been doing well. Patient has been confused and forgetful. Neurology was consulted. They evaluated the patient. Patient will be discharged to the retirement. He will be continued on IV antibiotics per ID recommendations. LONDON HERRON MD Job#: [id number] EV
== END 2017-12-20 16:52 | disposition home or self-care (01) | DRG 872 ==
LOC: ER 20:00 → ERHOLD 12-12 00:49 → MED/SURG2 12-12 17:34
PROVIDERS: ADMIT Internal Medicine; ATTEND Internal Medicine
PROC: 0DJ08ZZ Inspection of Upper Intestinal Tract, Via Natural or Artificial Opening Endoscopic (ICD-10-PCS; principal; 2017-12-15 08:10)
DX: A41.51 Sepsis due to Escherichia coli [E. coli] (principal); N30.00 Acute cystitis without hematuria; D68.59 Other primary thrombophilia; F05 Delirium due to known physiological condition; D64.9 Anemia, unspecified; I10 Essential (primary) hypertension; Z79.01 Long term (current) use of anticoagulants; Z95.2 Presence of prosthetic heart valve; Z95.1 Presence of aortocoronary bypass graft; I25.10 Atherosclerotic heart disease of native coronary artery without angina pectoris; I25.2 Old myocardial infarction; Z82.49 Family history of ischemic heart disease and other diseases of the circulatory system; Z85.46 Personal history of malignant neoplasm of prostate; R31.29 Other microscopic hematuria; E11.42 Type 2 diabetes mellitus with diabetic polyneuropathy; I48.91 Unspecified atrial fibrillation; B96.20 Unspecified Escherichia coli [E. coli] as the cause of diseases classified elsewhere; N28.1 Cyst of kidney, acquired; R93.5 Abnormal findings on diagnostic imaging of other abdominal regions, including retroperitoneum; R79.89 Other specified abnormal findings of blood chemistry; G30.9 Alzheimer's disease, unspecified; F02.80 Dementia in other diseases classified elsewhere, unspecified severity, without behavioral disturbance, psychotic disturbance, mood disturbance, and anxiety; R13.19 Other dysphagia; K22.2 Esophageal obstruction; K29.70 Gastritis, unspecified, without bleeding; K22.8 Other specified diseases of esophagus; L89.151 Pressure ulcer of sacral region, stage 1
CPT/HCPCS: 36415; 43235; 51700; 51798; 70450; 71045; 71046; 74176; 76700; 80048; 80053; 81001; 82105; 82150; 82550; 82553; 82947; 82948; 83518; 83605; 83690; 83735; 84484; 85025; 85610; 85730; 87040; 87070; 87071; 87086; 87186; 87205; 87400; 93005; 93306; 97139; 99285; J0360; J0692; J0696; J1650; J2001; J2405; J2543; J3370; J7030; J7050

== ENCOUNTER → 2018-08-31 | Outpatient (CLI) | payer MEDICARE, BC ==
[~2018-08-31] MED LIST: AMIODARONE HCL200 MG PO; ARICEPT5 MG PO; ASPIR 8181 MG; DIATRIZOATE MEGL/DIATRIZOA SOD 30 ML BTL PO ONE; IOPAMIDOL 370 MG/ML 200 ML INFUS..BTL INJ ONE; LEXAPRO10 MG PO; LOVENOX60 MG/0.6 SC; PROPRANOLOL HCL80 MG PO; SIMVASTATIN40 MG PO; SODIUM CHLORIDE 0.9% 250ML 250 ML ONE; SODIUM CHLORIDE 0.9% 500ML 500 ML ONE; TRADJENTA5 MG; WARFARIN SODIUM2 MG PO; ZONISAMIDE50 MG PO
[2018-08-31 09:16] LABS: CREATININE, SERUM 1.22 mg/dL (0.72-1.25)
--- NOTE | 2018-08-31 12:25 | Diagnostic Imaging Report ---
PROCEDURE: CT ABDOMEN & PELVIS W/WO CONTRAST TECHNIQUE: The abdomen and pelvis were scanned utilizing a multidetector helical scanner from the diaphragm to the lesser trochanter before and after the IV administration of 100 cc Isovue 370. Imaging was performed in prone position her hematuria protocol. Coronal and sagittal multiplanar reformations were obtained. COMPARISON: CT abdomen and pelvis without contrast 12/12/2017. INDICATIONS: ASYMPTOMATIC MICROSCOPIC HMATURIA FINDINGS: LOWER THORAX: Subsegmental atelectasis in the dependent lingula and right middle lobe. Lung bases otherwise unremarkable. HEPATOBILIARY: No focal hepatic lesions. No biliary ductal dilatation. SPLEEN: No splenomegaly. PANCREAS: Subcentimeter lipomatous lesion in the uncinate process of the pancreas is unchanged. No additional focal pancreatic lesion. No ductal dilatation. ADRENALS: No adrenal nodules. KIDNEYS/URETERS: Left upper pole nonobstructing calculi measure 2.1 and 1.1 cm in size, not significantly changed compared to 12/12/2017 when accounting for differences in technique. No additional renal, ureteral, or bladder calculi. Bilateral renal cysts measure up to 3.3 cm on the left and 3.3 cm on the right. The largest right lower pole renal cyst has a single thin internal septation which is partially calcified and unchanged (series 3 image 101). In addition, there is a suspected solid hypoattenuating mass in the anterior aspect of the left kidney best seen on series 6 image 89. Excretory phase images show no filling defects within the upper collecting systems, visualized segments of the ureters, or the urinary bladder. The ureters are intermittently opacified presumably related to peristalsis. No periureteral mass lesions. PELVIC ORGANS/BLADDER: The urinary bladder is unremarkable. Prostate is enlarged with central coarse calcifications and metallic clips in the right yulia-prostate. PERITONEUM / RETROPERITONEUM: No free air or fluid. LYMPH NODES: No pelvic sidewall or retroperitoneal lymphadenopathy. Enlarged portacaval lymph node is unchanged. No mesenteric lymphadenopathy. VESSELS: Limited evaluation due to phase of scan acquisition. There is extensive atherosclerotic calcification of the abdominal aorta, branch vessels, and iliac arterial systems. GI TRACT: The large bowel shows no distention or wall thickening. There are a few sigmoid diverticula without adjacent inflammatory change. The appendix is normal. BONES AND SOFT TISSUES: The skeletal structures are intact with multilevel degenerative disc changes and facet arthropathy of the lumbar spine. Chronically unhealed fracture of the posterior right 11th rib. Incompletely healed fracture posterior left 10th rib. No focal soft tissue abnormalities. IMPRESSION: Large nonobstructing left upper pole renal calculi are unchanged relative to 12/12/2017, as are scattered bilateral renal cysts, one of which is minimally complex as described. 1.8 cm solid mass in the interpolar left kidney is indeterminate though suspicious for renal cell carcinoma. Further characterization with MRI of the abdomen with and without contrast (renal mass protocol) is suggested. Additional findings include atherosclerotic vascular disease, large bowel diverticulosis without evidence of diverticulitis, and prostatomegaly. Dictated by: Ray Alberto M.D. on 08/31/2018 at 12:29 Electronically approved by: Ray Alberto M.D. on 08/31/2018 at 12:29
== END ==
LOC: CT 08:27
PROVIDERS: ATTEND Urology
DX: N39.0 Urinary tract infection, site not specified (principal); R31.21 Asymptomatic microscopic hematuria
CPT/HCPCS: 36415; 74178; 82565; 84520; J7040; J7050; Q9967

== ENCOUNTER → 2018-10-05 | Outpatient (CLI) | payer MEDICARE, BC ==
[~2018-10-05] MED LIST changes: -DIATRIZOATE MEGL/DIATRIZOA SOD 30 ML BTL PO ONE; +GADOBENATE DIMEGLUMINE 1 ML IV ONE; -IOPAMIDOL 370 MG/ML 200 ML INFUS..BTL INJ ONE; +SODIUM CHLORIDE 0.9% 100 ML 100 ML ONE; -SODIUM CHLORIDE 0.9% 250ML 250 ML ONE; -SODIUM CHLORIDE 0.9% 500ML 500 ML ONE
[2018-10-05 09:50] LABS: CREATININE, SERUM 1.18 mg/dL (0.72-1.25)
--- NOTE | 2018-10-05 13:11 | Diagnostic Imaging Report ---
EXAMINATION: MRI Abdomen with and without contrast. TECHNIQUE: Axial T1 nonfat sat in and out of phase, axial T2 fat sat, coronal T2 nonfat sat, axial DWI and ADC MR images of the abdomen were obtained before and after the administration of 18 cc of gadolinium. Axial T1 fat sat GRE dynamic images in precontrast, arterial, venous and delayed phases were obtained. CLINICAL HISTORY:Renal stones, renal cysts COMPARISON: CT urogram 08/31/2018 FINDINGS: LOWER THORAX: Unremarkable. LIVER: Normal hepatic size and contour.. No hepatic signal abnormality. No focal hepatic lesions. BILIARY: No intra or extrahepatic biliary ductal dilation.. Stable focal thickening of the gallbladder wall at the fundus with multiple 2 to 4 mm T2 hyperintense cystic lesions (best visualized on series 8, image 31 and series 6, image 16). No stones or pericholecystic fluid. PANCREAS: No mass or ductal dilatation. SPLEEN: No splenomegaly. ADRENALS: No nodules. KIDNEYS: Right: Normal enhancement. No hydronephrosis, hydroureter or evidence of obstruction. Several cystic lesions are noted in the right kidney, as follows: * 2.1 x 1.9 cm and 1.3 x 1.2 cm T2 hyperintense, nonenhancing simple cysts (series 6, image 26). * 2.8 x 2.6 x 2.2 cm T2 hyperintense, T1 hypointense lesion lateral mid to inferior aspect, which shows no enhancement, septations or mural nodules or restricted diffusion, consistent with a simple cyst (series 6, image 35). * 1.3 x 1.2 cm 2 hyperintense, T1 hypointense, nonenhancing lesion in the inferior pole, consistent with a simple cyst. * Several subcentimeter T2 hyperintense lesions which are too small to characterize, but likely represent simple cysts No solid enhancing masses. Left: Normal enhancement. No hydronephrosis, or visible obstruction. 1.6 cm and elongated T2 hypointense structures in the left renal pelvis, consistent with previously visualized stones (best visualized on series 11, image 197). Several cystic lesions are noted in the left kidney, as follows: * 2.9 x 2.6 x 4.2 cm lobulated T2, nonenhancing lesion in the superior pole (series 6, image 25 and series 8, image 16), which may represent a lobulated simple cyst versus 2 adjacent simple cysts. * 1.7 x 2.7 x 2.6 cm T2 hyperintense, T1 hypointense lobulated structure in the inferior pole with hairline nonvascular septation (best visualized on series 8, image 16), which shows no enhancement, likely representing 2 adjacent simple cysts or a minimally complex cyst. * Several subcentimeter T2 hyperintense lesions which are too small to characterize, but likely represent simple cysts No solid enhancing masses. PERITONEUM / RETROPERITONEUM: No upper abdominal free fluid. GI TRACT: Visualized bowel shows no dilation or obstruction LYMPH NODES: No upper abdominal lymphadenopathy. VESSELS: The celiac trunk, superior and inferior mesenteric and bilateral renal arteries are patent. The portal, superior mesenteric and splenic veins are patent. No collateral circulation. BONES AND SOFT TISSUES: No abnormal bone marrow signal. No soft tissue abnormalities. IMPRESSION: 1. Bilateral simple renal cysts and a minimally complex cyst in the inferior pole of the left kidney versus 2 adjacent simple cysts, for which no further follow-up is indicated. 2. Left nonobstructing nephrolithiasis. No hydronephrosis, hydroureter or evidence of obstruction. 3. Findings in the gallbladder fundus are consistent with adenomyomatosis. No cholelithiasis. Signed by: Dr. Ronak Liao M.D. on 10/05/2018 1:07 PM
== END ==
LOC: MRI 08:53
PROVIDERS: ATTEND Urology
DX: N28.1 Cyst of kidney, acquired (principal)
CPT/HCPCS: 36415; 74183; 82565; 84520; A9577

== ENCOUNTER → 2018-11-11 | Day surgery (SDC) | payer MEDICARE, BC ==
[2018-11-09 11:05] LABS: BASOPHILS # (AUTO) 0.1 (0.0-0.1); BASOPHILS % 0.7 % (0.0-1.0); EOSINOPHILS # (AUTO) 0.2 (0.0-0.4); EOSINOPHILS % 2.8 % (0.0-6.0); HEMATOCRIT 35.3 % (38.2-49.6); HEMOGLOBIN 12.2 g/dL (14.0-18.0); LYMPHOCYTES % 28.6 % (18.0-39.1); MEAN CORPUSCULAR HEMOGLOBIN 31.8 pg (28-32); MEAN CORPUSCULAR HGB CONC 34.6 g/dL (31-35); MEAN CORPUSCULAR VOLUME 91.9 fL (81-99); MONOCYTES # (AUTO) 0.6 (0.2-0.8); MONOCYTES % 8.7 % (4.4-11.3); NEUTROPHILS # (AUTO) 4.1 (2.1-6.9); NEUTROPHILS % 58.1 % (38.7-80.0); PLATELET COUNT 246 x10e3/uL (140-360); RED BLOOD COUNT 3.84 x10e6/uL (4.3-5.7); RED CELL DISTRIBUTION WIDTH 12.8 % (11.7-14.4)
--- NOTE | 2018-11-09 11:09 | Diagnostic Imaging Report ---
Exam: KUB - 2 view Indication: Preoperative Comparison: CT abdomen pelvis of 08/31/2018 Findings: Again seen are multiple left renal calculi corresponding with findings of prior CT on 08/31/2018. The largest calculus measures up to 2.1 cm at the left kidney upper pole. No new radiographically apparent renal calculi. Extensive vascular calcifications of the splenic artery. Sternotomy wires partially visualized. The partially visualized lung bases appear clear. Nonobstructive bowel gas pattern. No free air. Substantial degenerative changes of the lower lumbar spine. Phleboliths in the pelvis. Radiopaque prostate seed markers. Impression: Left renal calculi measuring up to 2.1 cm. Signed by: Aleida Campbell MD on 11/09/2018 11:05 AM
--- NOTE | 2018-11-09 11:10 | Diagnostic Imaging Report ---
EXAMINATION: CHEST 2 VIEWS INDICATION: Pre-operative COMPARISON: Chest radiograph of 12/13/2017 FINDINGS: LINES/TUBES:None LUNGS:The lungs are well-inflated. No focal consolidation or pulmonary edema. PLEURA:No pleural effusion or pneumothorax. MEDIASTINUM:The cardiomediastinal silhouette appears unchanged in size and shape. Sternotomy wires and valvular prosthesis. BONES/SOFT TISSUES:No acute osseous injury. ABDOMEN:No free air under the diaphragm. IMPRESSION: No focal pneumonia or pulmonary edema. Signed by: Aleida Campbell MD on 11/09/2018 11:07 AM
[2018-11-09 11:27] LABS: ANION GAP 16.1 mmol/L (8-16); CALCIUM 9.6 mg/dL (8.4-10.2); CREATININE, SERUM 1.38 mg/dL (0.72-1.25); POTASSIUM 4.1 mmol/L (3.5-5.1)
[~2018-11-11] MED LIST changes: +AMPICILLIN SOD 1 GM/NS 50ML 50 ML IV ONE; +B&O 60MG R/S 60 MG SUPP PR ONE; +FENTANYL CITRATE/PF 100MCG/2 ML INJ ONE; -GADOBENATE DIMEGLUMINE 1 ML IV ONE; +GENTAMICIN 80MG/NS 100 ML 0 ML IV ONE; +GENTAMICIN 80MG/NS 100 ML 100 ML IV ONE; +GLYCOPYRROLATE INJ 1MG/ 5 ML SYR ONE; +IOPAMIDOL 610MG/1ML 300 MG/ML VIAL IV ONE; +LIDOCAINE HCL 2% LOCAL INJ 5 ML SDV VIAL INJ ONE; +ONDANSETRON HCL INJ 2MG/ML 2ML 2 MG/ML VIAL ONE; +PROPOFOL IV EMULSION 10 MG/ML 20 ML VIAL ONE; +SEVOFLURANE INHAL SOLN 250 ML PEN BTL ONE; -SODIUM CHLORIDE 0.9% 100 ML 100 ML ONE
--- OUTSIDE RECORDS SUMMARY | 2018-11-11 11:49 | XMS REPORT | Clinical Summary ---
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 Active aspirin (ECOTRIN) 81 MG Take 81 mg by 0 enteric coated tablet mouth daily. Active warfarin (COUMADIN) 1 MG Take 5 mg by 0 tablet mouth daily. Active enalapril (VASOTEC) 2.5 Take 2.5 mg 0 MG tablet by mouth daily. Active metoprolol tartrate Take 50 mg by 0 (LOPRESSOR) 50 mg tablet mouth 2 (two) times a day. Active nitroglycerin (NITRODUR) Place 1 patch 0 0.2 mg/hr on the skin every morning. Active nitroglycerin (NITROSTAT) Place 0.4 mg 0 0.4 MG SL tablet under the tongue every 5 (five) minutes as needed for chest pain. Active simvastatin (ZOCOR) 40 MG Take 40 mg by 0 tablet mouth nightly. Active warfarin (COUMADIN) 1 MG Take 1 mg by 0 tablet mouth daily. 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
[2018-11-11 17:05] VITALS: BP 159/75
--- NOTE | 2018-12-27 05:49 | Operative Report ---
DATE OF PROCEDURE: 11/11/2018 SURGEON: Bruce Rodrigues MD PREOPERATIVE DIAGNOSES: 1. Left nephrolithiasis. 2. Potential for left renal colic. POSTOPERATIVE DIAGNOSES: 1. Left nephrolithiasis. 2. Potential for left renal colic. 3. 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 OPERATION PERFORMED: Note, these were all staged procedures as part of multi-staged and multi-step process in managing the patient's urolithiasis. 1. Left-sided extracorporeal shockwave lithotripsy (separate procedure performed for the nephrolithiasis). 2. Cystourethroscopy with calibration and dilation of urethral stricture (separate procedure performed for the diagnosis of stricture). 3. Cystourethroscopy with insertion of left indwelling ureteral stent (separate procedure performed for the diagnosis of impending renal colic). 4. Interpretation of retrograde ureteropyelography. ANESTHESIA: General. COMPLICATIONS: None. CLINICAL SUMMARY: Nicolas Arndt is an 82-year-old male with large stone burden on left hand side. He has a history of right recurrent prostate cancer and is on hormonal therapy. The patient had a history of urinary tract infections and microhematuria and is brought for the above procedures. He is aware of the risks of bleeding, infection, injury to adjacent structures, need for additional procedures and elected to proceed. OPERATIVE PROCEDURE IN DETAIL: Informed consent was verified. Nicolas Arndt was properly identified and taken to the operating room, placed on lithotripsy table in supine position. Anesthesia was uneventfully begun. The patient's larger than 2 cm stone burden over the upper calyx was localized with biplanar fluoroscopy. A total of 3000 shocks were delivered with fragmentation noted. The patient was then carefully gently repositioned in dorsal lithotomy position with all pressure points well padded. His genitalia were prepared and draped in usual sterile fashion. The cystoscope sheath with the visual obturator in place was atraumatically inserted into the patient's urethra, it was guided unremarkable urethra to the bulbar region where there was a short bulbar urethral stricture, we dilated across the stricture to the level of the patient's scope, thus dilating and calibrating it to 21-Spanish in size. We traversed through the patient's prostate bed, which was significant for mild BPH and into the patient's bladder. A panendoscopy revealed trabeculations, but no tumors, no stones, no diverticula. Some fine sand was noted. There were no suspicious lesions. The ureteral catheter was used to cannulate each ureter and retrograde ureteropyelograms were performed. Interpretation of retrograde ureteropyelography contrast was instilled in a retrograde fashion bilaterally. The right side was unremarkable. There were no tumors. There were no stones. No suspicious lesions were identified. There was no hydronephrosis. Unobstructed drainage was observed. On left hand side, we could not opacify the left upper pole calyx, this was the calyx that we treated. We did not treat the 1.3 cm lower pole stone. The stent was in good position. With cystoscopic and fluoroscopic guidance, the left-sided indwelling ureteral stent was then placed, it was coiled in the patient's kidneys as well as the patient's bladder and the retaining suture was cut short. The patient's bladder was drained and cystoscope was withdrawn. Belladonna and opium suppository were placed. The patient was uneventfully reversed from anesthesia and taken to the recovery room in stable condition. Explicit postop instructions were given and we will schedule the patient for a left ureteroscopy with holmium laser available in order to proceed with the next step of his stone management. Bruce Rodrigues MD OH/CARMINE /[id number] cc: Jolie Feldman MD
== END | disposition home or self-care (01) ==
LOC: OR 11:44
PROVIDERS: ATTEND Urology
DX: N20.0 Calculus of kidney (principal); N35.912 Unspecified bulbous urethral stricture, male; N40.0 Benign prostatic hyperplasia without lower urinary tract symptoms; N32.89 Other specified disorders of bladder; I10 Essential (primary) hypertension; E11.9 Type 2 diabetes mellitus without complications; I25.810 Atherosclerosis of coronary artery bypass graft(s) without angina pectoris; R25.1 Tremor, unspecified; G62.9 Polyneuropathy, unspecified; K44.9 Diaphragmatic hernia without obstruction or gangrene; F03.90 Unspecified dementia, unspecified severity, without behavioral disturbance, psychotic disturbance, mood disturbance, and anxiety; I44.4 Left anterior fascicular block; I45.10 Unspecified right bundle-branch block; Z01.810 Encounter for preprocedural cardiovascular examination; Z01.812 Encounter for preprocedural laboratory examination; Z01.818 Encounter for other preprocedural examination; Z79.01 Long term (current) use of anticoagulants; Z79.82 Long term (current) use of aspirin; Z92.3 Personal history of irradiation; Z95.2 Presence of prosthetic heart valve; Z95.1 Presence of aortocoronary bypass graft; Z87.891 Personal history of nicotine dependence
CPT/HCPCS: 36415 ×2; 50590; 52332; 71046; 74018; 80048; 82948; 85025; 93005; C1758; C2617; J0290; J1580; J2001; J2405; J2704; J3010; J3490; Q9967

== ENCOUNTER → 2018-12-09 | Day surgery (SDC) | payer MEDICARE, BC ==
[2018-12-06 14:57] LABS: BASOPHILS # (AUTO) 0.1 (0.0-0.1); BASOPHILS % 0.8 % (0.0-1.0); EOSINOPHILS # (AUTO) 0.2 (0.0-0.4); EOSINOPHILS % 3.3 % (0.0-6.0); HEMATOCRIT 33.6 % (38.2-49.6); HEMOGLOBIN 11.9 g/dL (14.0-18.0); LYMPHOCYTES # (AUTO) 1.6 (1.0-3.2); LYMPHOCYTES % 24.5 % (18.0-39.1); MEAN CORPUSCULAR HEMOGLOBIN 32.6 pg (28-32); MEAN CORPUSCULAR HGB CONC 35.4 g/dL (31-35); MEAN CORPUSCULAR VOLUME 92.1 fL (81-99); MONOCYTES # (AUTO) 0.5 (0.2-0.8); MONOCYTES % 7.6 % (4.4-11.3); NEUTROPHILS # (AUTO) 4.2 (2.1-6.9); NEUTROPHILS % 63.2 % (38.7-80.0); PLATELET COUNT 161 x10e3/uL (140-360); RED BLOOD COUNT 3.65 x10e6/uL (4.3-5.7); RED CELL DISTRIBUTION WIDTH 12.8 % (11.7-14.4)
--- NOTE | 2018-12-06 15:12 | Diagnostic Imaging Report ---
Exam: KUB Clinical history: Preoperative clearance Comparison: CT abdomen and pelvis, August 31, 2018 Findings: A left internal ureteral stent is noted in its expected location. Ill-defined calcific density structures are seen in the left kidney with the largest one measuring 2.1 x 1.0 cm overlying the inferior pole. Other smaller scattered calcifications also noted in the upper and interpolar regions. There is nonobstructive bowel gas pattern. Degenerative changes are noted throughout the lumbar spine. The soft tissue is unremarkable. Impression 1. Left nephrolithiasis as described. 2. Status post left internal ureteral stent insertion. Signed by: Dr. Nic Solis MD on 12/06/2018 3:09 PM
[2018-12-06 15:16] LABS: ANION GAP 18.1 mmol/L (8-16); CALCIUM 9.7 mg/dL (8.4-10.2); CREATININE, SERUM 1.33 mg/dL (0.72-1.25); POTASSIUM 4.1 mmol/L (3.5-5.1)
[~2018-12-09] MED LIST changes: -AMPICILLIN SOD 1 GM/NS 50ML 50 ML IV ONE; +CEFTRIAXONE SOD 1 GM/NS 50 ML 50 ML IV ONE; -GENTAMICIN 80MG/NS 100 ML 0 ML IV ONE; -GLYCOPYRROLATE INJ 1MG/ 5 ML SYR ONE; +IOPAMIDOL 300MG/ML 50ML INFUS..BTL IV ONE; -IOPAMIDOL 610MG/1ML 300 MG/ML VIAL IV ONE; +METOCLOPRAMIDE HCL 10 MG/2ML VIAL ONE
[2018-12-09 06:29] LABS: INR 1.01; PROTHROMBIN TIME 13.8 seconds (11.9-14.5)
[2018-12-09 09:25] VITALS: BP 149/82
--- NOTE | 2019-02-11 19:19 | Operative Report ---
DATE OF PROCEDURE: 02/08/2019 SURGEON: Bruce Rodrigues MD PREOPERATIVE DIAGNOSES: 1. Urolithiasis. 2. Indwelling ureteral stent. POSTOPERATIVE DIAGNOSES: 1. Extensive left nephrolithiasis. 2. Extensive left ureterolithiasis. 3. Left indwelling ureteral stent. OPERATIONS PERFORMED: Note, these were all staged procedures as part of multi-staged and multi-step process in managing the patient's urolithiasis. 1. Cystourethroscopy with complicated removal of left indwelling ureteral stent (separate procedure performed with separate scope for the diagnosis of stent). 2. Left semi-rigid ureteroscopy with repeated stone manipulation for numerous left ureteral stones (separate procedure performed with separate scope for the ureteral stones). 3. Left flexible ureteropyeloscopy with holmium laser lithotripsy and insertion of stent (separate procedure performed for the extensive left nephrolithiasis). 4. Radiological services with supervision and interpretation of ureteroscopy. 5. Interpretation of retrograde ureteropyelography. ANESTHESIA: General. COMPLICATIONS: None. CLINICAL SUMMARY: Nicolas Arndt is an 83-year-old man with nephrolithiasis. He has undergone previous treatment and stenting, and he is brought for additional procedures in a staged process. He is aware of the risks of bleeding, infection, injury to adjacent structures, need for additional procedures, and elected to proceed. OPERATIVE PROCEDURE IN DETAIL: Informed consent was verified. Nicolas Arndt was also was properly identified, taken to the operating room, and placed on the cystoscopy table in supine position. Anesthesia was uneventfully begun. The patient was then carefully gently repositioned in dorsal lithotomy position with all pressure points well padded. The cystoscope sheath with the visual obturator in place was atraumatically inserted into the patient's urethra. It was guided down to the unremarkable distal urethra through the bulbar region, where it had some wide caliber nonobstructing stricture, went through the prostate bed, where it was significant for BPH, and into the patient's bladder, where stent was emerging from the left ureteral orifice. The prostate bed was significant for being somewhat friable and being status post transurethral resection of the prostate previously. There was some small pieces of stones were noted within the bladder. An open-ended catheter was used to cannulate the right ureter and retrograde ureteropyelograms were performed. A guidewire was then placed in the left ureter and guided to the level of the patient's kidney. The stent was then grasped, completely removed and discarded. Semi-rigid ureteroscope was then brought up alongside the guidewire into the left ureter. We identified numerous stones. A Nitinol tipless basket was then utilized to grasp stone fragment and then we extracted. Then, we re-introduced the ureteroscope, grasped the stone fragment and extracted. This procedure was performed countless times until the ureter was free of stones. Secondary guidewire was left in place. Flexible ureteroscope was then brought up over the guidewire and guided to the level of the patient's kidney. Panendoscopy revealed significant stone burden including stones that were too large to pass. Holmium laser lithotripsy was then performed to vaporize the stone burden within the kidney into small fragments. Following this extensive holmium laser lithotripsy with cystoscopic fluoroscopic guidance, a left-sided indwelling ureteral stent was then placed. It was coiled in the patient's kidneys as well as the patient's bladder. The retaining suture was cut short. Interpretation of retrograde ureteropyelography contrast was instilled in retrograde fashion bilaterally. The right side was unremarkable. No tumors. No stones. No diverticula. Unobstructed drainage was observed fluoroscopically. Left hand side exhibited filling defects in the ureter, which corresponded to the stones we extracted. There were filling defects within the kidney, which corresponded to the stones we lasered. The stent was in good position and coiled in the patient's left kidney as well as the patient's bladder at the end of the case. The patient's bladder was then drained. The cystoscope was withdrawn. A belladonna and opium suppository were placed revealing a flat prostate with some firmness following external beam radiotherapy for prostate cancer. The patient was then uneventfully reversed from anesthesia and taken to the recovery room in stable condition. There were no complications during the procedure. He tolerated the procedure well. Plans will be to return the patient to the operating room to remove his left stent, perform left ureteroscopy and hopefully render the patient stent-free and stone-free. Bruce Rodrigues MD OH/CARMINE /[id number] cc: Jolie Feldman MD
== END | disposition home or self-care (01) ==
LOC: OR 05:00
PROVIDERS: ATTEND Urology
DX: N20.1 Calculus of ureter (principal); N20.0 Calculus of kidney; N40.0 Benign prostatic hyperplasia without lower urinary tract symptoms; N35.912 Unspecified bulbous urethral stricture, male; Z46.6 Encounter for fitting and adjustment of urinary device; I10 Essential (primary) hypertension; E11.9 Type 2 diabetes mellitus without complications; I25.10 Atherosclerotic heart disease of native coronary artery without angina pectoris; I25.2 Old myocardial infarction; F03.90 Unspecified dementia, unspecified severity, without behavioral disturbance, psychotic disturbance, mood disturbance, and anxiety; Z01.812 Encounter for preprocedural laboratory examination; Z79.01 Long term (current) use of anticoagulants; Z79.82 Long term (current) use of aspirin; Z95.1 Presence of aortocoronary bypass graft; Z87.891 Personal history of nicotine dependence
CPT/HCPCS: 36415 ×2; 52356; 74018; 74420; 80048; 82948; 85025; 85610; 85730; 87086; 87186; 88300; C1758; C2617; J0696; J1580; J2001; J2405; J2704; J2765; J3010; Q9967

== ENCOUNTER → 2019-01-12 | Outpatient (CLI) | payer MEDICARE, BC ==
[~2019-01-12] MED LIST changes: -B&O 60MG R/S 60 MG SUPP PR ONE; -CEFTRIAXONE SOD 1 GM/NS 50 ML 50 ML IV ONE; -FENTANYL CITRATE/PF 100MCG/2 ML INJ ONE; -GENTAMICIN 80MG/NS 100 ML 100 ML IV ONE; -IOPAMIDOL 300MG/ML 50ML INFUS..BTL IV ONE; -LIDOCAINE HCL 2% LOCAL INJ 5 ML SDV VIAL INJ ONE; -METOCLOPRAMIDE HCL 10 MG/2ML VIAL ONE; -ONDANSETRON HCL INJ 2MG/ML 2ML 2 MG/ML VIAL ONE; -PROPOFOL IV EMULSION 10 MG/ML 20 ML VIAL ONE; -SEVOFLURANE INHAL SOLN 250 ML PEN BTL ONE
--- NOTE | 2019-01-12 12:05 | Diagnostic Imaging Report ---
Exam: KUB - 2 views Indication: Renal calculus Comparison: KUB of 12/06/2018 Findings: Left internal nephroureteral stent in place. The previously seen left renal calculi are not well visualized on this study, obscured by a loop of air-filled transverse colon. No radiographically apparent renal calculi. Prostate fiducials in place. Nonobstructive bowel gas pattern. No free air. Degenerative changes of the spine and both hip joints. Impression: No radiographically apparent renal calculi. The area of previously seen left renal calculi is obscured by a loop of air-filled bowel. Left internal nephroureteral stent in place. Signed by: Aleida Campbell MD on 01/12/2019 12:02 PM
== END ==
LOC: RAD 11:24
PROVIDERS: ATTEND Urology
DX: N20.0 Calculus of kidney (principal)
CPT/HCPCS: 74018

== ENCOUNTER 2020-03-31 09:25 | Emergency (ER) | payer MEDICARE, BC ==
[~2020-03-31] VITALS: Ht 190.5 cm; Wt 90.7 kg
[2020-03-31 09:56] LABS: BASOPHILS # (AUTO) 0.1 (0.0-0.1); BASOPHILS % 0.7 % (0.0-1.0); EOSINOPHILS # (AUTO) 0.1 (0.0-0.4); EOSINOPHILS % 1.2 % (0.0-6.0); HEMATOCRIT 34.1 % (38.2-49.6); HEMOGLOBIN 11.4 g/dL (14.0-18.0); LYMPHOCYTES # (AUTO) 1.6 (1.0-3.2); LYMPHOCYTES % 21.5 % (18.0-39.1); MEAN CORPUSCULAR HEMOGLOBIN 30.5 pg (28-32); MEAN CORPUSCULAR HGB CONC 33.4 g/dL (31-35); MEAN CORPUSCULAR VOLUME 91.2 fL (81-99); MONOCYTES # (AUTO) 0.6 (0.2-0.8); MONOCYTES % 7.9 % (4.4-11.3); NEUTROPHILS # (AUTO) 5.1 (2.1-6.9); NEUTROPHILS % 68.2 % (38.7-80.0); PLATELET COUNT 186 x10e3/uL (140-360); RED BLOOD COUNT 3.74 x10e6/uL (4.3-5.7); RED CELL DISTRIBUTION WIDTH 12.7 % (11.7-14.4)
[2020-03-31] MEDS ORDERED: SODIUM CHLORIDE 0.9% 500ML 500 ML IV ONE (10:00)
[2020-03-31 10:10] LABS: INR 2.04; PROTHROMBIN TIME 24.6 seconds (11.9-14.5)
[2020-03-31 10:12] LABS: PARTIAL THROMBOPLASTIN TIME 39.5 seconds (23.8-35.5)
[2020-03-31 10:19] LABS: ALBUMIN 4.3 g/dL (3.5-5.0); ALBUMIN/GLOBULIN RATIO 1.4 (0.8-2.0); ANION GAP 16.1 mmol/L (8-16); CREATININE, SERUM 1.29 mg/dL (0.72-1.25); MAGNESIUM 1.8 MG/DL (1.3-2.1); POTASSIUM 4.1 mmol/L (3.5-5.1)
[2020-03-31 10:26] LABS: CREATINE KINASE MB 1.3 ng/mL (0-5.0)
[2020-03-31] MEDS ORDERED: IOPAMIDOL 370 MG/ML 200 ML INFUS..BTL INJ ONE (10:44)
[2020-03-31] MEDS ORDERED: ONDANSETRON HCL INJ 2MG/ML 2ML 2 MG/ML VIAL IV STA (11:04)
[2020-03-31] MEDS ORDERED: ONDANSETRON HCL INJ 2MG/ML 2ML 2 MG/ML VIAL ONE (11:13)
[2020-03-31] MEDS ORDERED: MORPHINE SULFATE INJ 2 MG/ML SYR IV STA (11:20)
[2020-03-31 12:03] LABS: CLARITY,URINE CLEAR (CLEAR); COLOR,URINE YELLOW (YELLOW); KETONES,URINE NEGATIVE (NEGATIVE); LEUKOCYTE ESTERASE ,URINE NEGATIVE (NEGATIVE); NITRITE,URINE NEGATIVE (NEGATIVE); PROTEIN,URINE DIPSTICK NEGATIVE (NEGATIVE); URINE UROBILINOGEN 0.2 mg/dL (0.2 - 1)
[2020-03-31 12:29] LABS: RBC,URINE 0-5 /HPF (0-5); WBC,URINE (MAN) 0-5 /HPF (0-5)
[2020-03-31 12:30] LABS: BACTERIA,URINE FEW /HPF; EPITHELIAL CELLS,URINE RARE /LPF; MUCUS,URINE FEW (RARE)
[2020-03-31 14:03] VITALS: BP 146/82
== END 2020-03-31 14:04 | disposition home or self-care (01) ==
LOC: ER 09:37
DX: R10.32 Left lower quadrant pain (principal); K59.00 Constipation, unspecified; N20.0 Calculus of kidney; K76.0 Fatty (change of) liver, not elsewhere classified; R94.31 Abnormal electrocardiogram [ECG] [EKG]; Z79.01 Long term (current) use of anticoagulants
CPT/HCPCS: 36415; 71045; 74177; 80053; 81001; 82550; 82553; 83735; 83880; 84484; 85025; 85610; 85730; 87086; 93005; 99284; J2405; J7040; Q9967

== ENCOUNTER 2020-04-04 04:10 | Emergency (ER) | payer MEDICARE, BC ==
[~2020-04-04] VITALS: Ht 190.5 cm; Wt 90.7 kg
[2020-04-04] MEDS ORDERED: ONDANSETRON HCL INJ 2MG/ML 2ML 2 MG/ML VIAL IV STA (07:52)
[2020-04-04] MEDS ORDERED: MORPHINE SULFATE INJ 4 MG/ML INJ 1ML IV PRN (08:00)
[2020-04-04 08:21] LABS: BASOPHILS # (AUTO) 0.1 (0.0-0.1); BASOPHILS % 0.7 % (0.0-1.0); EOSINOPHILS # (AUTO) 0.1 (0.0-0.4); EOSINOPHILS % 1.1 % (0.0-6.0); HEMATOCRIT 35.6 % (38.2-49.6); HEMOGLOBIN 12.1 g/dL (14.0-18.0); LYMPHOCYTES # (AUTO) 1.5 (1.0-3.2); LYMPHOCYTES % 18.3 % (18.0-39.1); MEAN CORPUSCULAR HEMOGLOBIN 31.8 pg (28-32); MEAN CORPUSCULAR VOLUME 93.4 fL (81-99); MONOCYTES # (AUTO) 0.8 (0.2-0.8); MONOCYTES % 9.3 % (4.4-11.3); NEUTROPHILS # (AUTO) 5.8 (2.1-6.9); NEUTROPHILS % 70.1 % (38.7-80.0); PLATELET COUNT 199 x10e3/uL (140-360); RED BLOOD COUNT 3.81 x10e6/uL (4.3-5.7); RED CELL DISTRIBUTION WIDTH 12.8 % (11.7-14.4)
[2020-04-04 08:45] LABS: ALBUMIN 4.6 g/dL (3.5-5.0); ALBUMIN/GLOBULIN RATIO 1.4 (0.8-2.0); ANION GAP 16.3 mmol/L (8-16); CALCIUM 9.2 mg/dL (8.4-10.2); CREATININE, SERUM 1.24 mg/dL (0.72-1.25); POTASSIUM 4.3 mmol/L (3.5-5.1)
[2020-04-04] MEDS ORDERED: COLACE100 MG PO (09:54)
[2020-04-04 10:01] VITALS: BP 128/78
== END 2020-04-04 10:03 | disposition home or self-care (01) ==
LOC: ER 04:17
DX: R19.7 Diarrhea, unspecified (principal); I10 Essential (primary) hypertension; F03.90 Unspecified dementia, unspecified severity, without behavioral disturbance, psychotic disturbance, mood disturbance, and anxiety; I48.91 Unspecified atrial fibrillation; I25.2 Old myocardial infarction; Z95.1 Presence of aortocoronary bypass graft; Z85.46 Personal history of malignant neoplasm of prostate
CPT/HCPCS: 36415; 74176; 80053; 83690; 85025; 99284